=== PATIENT | female | born 1930 | race Caucasian/White ===

== ENCOUNTER 2019-03-21 19:20 | Inpatient (IN) | payer MEDICARE, OTHER ==
--- NOTE | 2019-03-21 21:02 | ED ---
Lower Extremity - HPI Summary HPI Summary: The patient is an 88 y/o female presenting to [facility] accompanied by family with a chief complaint of pain in the anterior lower left leg worsening since yesterday. She reports that on 03/02/2019, she had a fall which had a negative workup. There were abrasions to the lower extremities which began to heal with at-home interventions of cleaning and applying gauze for coverage. The dressings have been changed by family since onset, but they noticed mild edema in the left foot. Yesterday, she began to experience more pain in the lower left leg, but she did not have difficulty ambulating. Today, her daughter noticed swelling and drainage of the wounds on the leg, as well as increased edema in the foot. After she had a nap and woke up around [id number], the patient was unable to ambulate on the left lower extremity without severe pain. She has not taken any medications for pain relief. The pain is rated 9/10 in severity. She endorses tingling in the distal leg. Currently taking Xarelto. PMHx: CHF, mitral valve repair, tricuspid valve repair, pacemaker/defibrillator , early dementia, bilateral hip replacements. Nonsmoker, no EtOH, no substance use. Medications reviewed. Allergies noted. - History of Current Complaint Chief Complaint: EDExtremityLower Stated Complaint: PAIN IN LEFT LEG PER DAUGHTER Time Seen by Provider: 03/21/19 20:52 Hx Obtained From: Patient, Family/Postal Transportation Clerk Mechanism Of Injury: Fall From A Standing Position Onset of Pain: Days Onset/Duration: Worse Since - yesterday Severity Initially: Mild Severity Currently: Severe Pain Intensity: 9 Pain Scale Used: 0-10 Numeric Timing: Constant Location: Is Discrete @ - lower left leg Associated Signs And Symptoms: Positive: Swelling - wounds on left leg, Other - edema left foot, drainage of wounds on left leg, tingling in lower left leg Aggravating Factor(s): Ambulation Alleviating Factor(s): Nothing Able to Bear Weight: Yes - Allergies/Home Medications Allergies/Adverse Reactions: Allergies Allergy/AdvReac Type Severity Reaction Status Date / Time No Known Allergies Allergy Verified 03/21/19 19:26 Home Medications: Home Medications Amiodarone HCl [Amiodarone HCl-] 100 mg PO DAILY 03/22/19 [History Confirmed ] Aspirin [Aspir-Low] 81 mg PO DAILY 03/22/19 [History Confirmed 03/22/19] Atorvastatin Calcium [Lipitor] 40 mg PO DAILY 03/22/19 [History Confirmed ] Enalapril Maleate 2.5 mg PO DAILY 03/22/19 [History Confirmed 03/22/19] Famotidine 20 mg PO BID 03/22/19 [History Confirmed 03/22/19] Folic Acid TAB* [Folvite TAB*] 1 tab PO DAILY 03/22/19 [History Confirmed ] Metoprolol Succinate [Metoprolol Succinate ER] 25 mg PO DAILY 03/22/19 [History Confirmed 03/22/19] Potassium Chloride 1 tab PO DAILY 03/22/19 [History Confirmed 03/22/19] Pramipexole [Mirapex] 1 mg PO TID 03/22/19 [History Confirmed 03/22/19] Rivaroxaban TAB(*) [Xarelto 15 mg(*)] 15 mg PO DAILY 03/22/19 [History Confirmed 03/22/19] Spironolactone 25 mg PO DAILY 03/22/19 [History Confirmed 03/22/19] Torsemide 2 tab PO DAILY 03/22/19 [History Confirmed 03/22/19] Ubiquinol [Active-Q] 300 mg PO DAILY 03/22/19 [History Confirmed 03/22/19] PMH/Surg Hx/FS Hx/Imm Hx Endocrine/Hematology History: Denies: Hx Diabetes Cardiovascular History: Reports: Hx Congestive Heart Failure, Hx Pacemaker/ICD, Other Cardiovascular Problems/Disorders - mitral valve replacement, tricuspid valve repair Neurological History: Reports: Hx Dementia - Surgical History Surgical History: Yes Surgery Procedure, Year, and Place: pacemaker, mitral and tricuspid valve repairs, bilateral hip replacements Infectious Disease History: No Infectious Disease History: Denies: Traveled Outside the [place] in Last 30 Days - Social History Alcohol Use: None Hx Substance Use: No Substance Use Type: Reports: None Hx Tobacco Use: No Smoking Status (MU): Never Smoked Tobacco - Additional Comments History Additional Comments: CHF, mitral valve repair, tricuspid valve repair, pacemaker/defibrillator, early dementia Review of Systems - ROS Summary Review of Systems Summary: Home Medications Medication Instructions Recorded Confirmed Type Amiodarone HCl [Amiodarone HCl-] 100 mg PO DAILY 03/22/19 03/22/19 History Aspirin [Aspir-Low] 81 mg PO DAILY 03/22/19 03/22/19 History Atorvastatin Calcium [Lipitor] 40 mg PO DAILY 03/22/19 03/22/19 History Enalapril Maleate 2.5 mg PO 03/22/19 History Famotidine 03/22/19 History Folic Acid TAB* [Folvite TAB*] 1 tab PO DAILY 03/22/19 03/22/19 History Metoprolol Succinate [Metoprolol 25 mg PO DAILY 03/22/19 03/22/19 History Succinate ER] Potassium Chloride 1 tab PO DAILY 03/22/19 03/22/19 History Pramipexole [Mirapex] 1 mg PO TID 03/22/19 03/22/19 History Rivaroxaban TAB(*) [Xarelto 15 15 mg PO DAILY 03/22/19 03/22/19 History mg(*)] Spironolactone 25 mg PO DAILY 03/22/19 03/22/19 History Torsemide 2 tab PO DAILY 03/22/19 03/22/19 History Ubiquinol [Active-Q] 300 mg PO DAILY 03/22/19 03/22/19 History Positive: Edema - left foot, Other - pain and swelling of left lower extremity, difficulty ambulating on left leg secondary to pain Positive: Other - drainage of the abrasions to left lower extremity Positive: Paresthesia - lower left leg All Other Systems Reviewed And Are Negative: Yes Physical Exam - Summary Physical Exam Summary: General: Well-developed, Well-nourished elderly female. Appears to be in mild discomfort. HEENT: Normocephalic, Atraumatic. Eyes: Conjuctiva normal, PERRL. Oropharynx: Clear, mucous membranes moist, (-) exudates. Neck: Soft, FROM, (-) lymphadenopathy, (-) thyromegaly, (-) JVD. Cardiovascular: Normal sinus rhythm, (-) murmur. Lungs: Clear to auscultation bilaterally (-) wheezes, (-) rales, (-) rhonchi. Abdomen: Soft, non-tender, non-distended, (-) organomegaly, normal bowel sounds. Back: (-) CVA tenderness Extremities: Left lower extremity has 1+ pitting edema. Erythema from the mid- lower extremity down including the foot with swelling. Good pulses, good capillary refill. Skin: Warm, dry, (-) rash. Three open ulcers with weeping on the left lower extremity, greatest is 1.2cm in diameter and 3mm deep. Neuro: Alert and oriented x3, move all extremities equally. No ataxia. No gait disturbance. No sensory deficit. No amnesia. Good strength and sensation in the distal lower left leg. Psychiatric: Mood normal, affect normal. Triage Information Reviewed: Yes Vital Signs On Initial Exam: Initial Vitals Temp Pulse Resp BP Pulse Ox 100.6 F 72 18 139/54 100 03/21/19 19:23 03/21/19 19:23 03/21/19 19:23 03/21/19 19:23 03/21/19 19:23 Vital Signs Reviewed: Yes Procedures - Sedation Patient Received Moderate/Deep Sedation with Procedure: No Diagnostics - Vital Signs Vital Signs Temp Pulse Resp BP Pulse Ox 03/21/19 19:23 100.6 F 72 18 139/54 100 - Laboratory Result Diagrams: 03/21/19 21:04 03/21/19 21:04 Lab Statement: Any lab studies that have been ordered have been reviewed, and results considered in the medical decision making process. - Radiology CXR Radiology Interpretation Completed By: ED Physician Summary of Radiographic Findings: No infiltrate. No pleural effusion. ED physician has reviewed and interpreted this report. Pending official read. Re-Evaluation - Re-Evaluation First Eval Re-Evaluation Time: 23:30 Comment: I discussed the plan for admission with the patient and her family. They agree with plan. Lower Extremity Course/Dx - Course Course Of Treatment: 88-year-old female from [place] brought in by her family. Patient has known mild dementia. Her earlier this month. Patient has been staying with her daughter for the last 2 weeks here in [place]. She had a fall a couple weeks ago. Seemed to be healing well until her leg became more edematous. The ulcers then worsened. Weeping. Her Lasix was tweaked and there seems to be a little bit better. Today patient started complaining of severe pain in her leg and foot. The area is erythematous and warm. Swollen. Patient is febrile upon arrival. Elevated white count. Blood pressure decreased consistent with sepsis. IV antibiotics and fluids given despite patient's elevated BNP Lasix ordered. Patient referred to hospitalist for admission. Patient administered fluids, Zosyn for infection, Tylenol for pain, and Lasix for edema. - Diagnoses Provider Diagnoses: Cellulitis, Sepsis - Physician Notifications Discussed Care Of Patient With: Tommie Holguin - hospitalist Time Discussed With Above Provider: 23:20 Instructed by Provider To: Other - I discussed the patients case with Dr. Holguin , who accepts the patient for admission. Discharge ED - Sign-Out/Discharge Documenting (check all that apply): Patient Departure - Patient accepted for admission by Dr. Holguin. - Discharge Plan Condition: Stable Disposition: ADMITTED TO [facility] - Billing Disposition and Condition Condition: STABLE Disposition: Admitted to [facility] - Attestation Statements Document Initiated by Itz: Yes Documenting Scribe: Morelia Abdi Provider For Whom Itz is Documenting (Include Credential): Dr. Padmini Andrews MD Scribe Attestation: Morelia Richardson, scribed for Dr. Padmini Andrews MD on 03/22/19 at 0213. Scribe Documentation Reviewed: Yes Provider Attestation: The documentation as recorded by the Morelia winkler accurately reflects the service I personally performed and the decisions made by me, Dr. Padmini Andrews MD Status of Scribe Document: Viewed
[2019-03-21 21:12] LABS: ABS Lymphocytes 0.3 10^3/ul (1.0-4.8); Hematocrit 40 % (35-47); Hemoglobin 13.2 g/dL (12.0-16.0); Lymphocyte % 1.4 %; Mean Corpuscular HGB Conc 33 g/dL (31-36); Mean Corpuscular Hemoglobin 34 pg (27-31); Mean Corpuscular Volume 102 fL (80-97); Mean Platelet Volume 7.4 fL (7.4-10.4); Platelet Count 164 10^3/uL (150-450); Red Blood Count 3.93 10^6 /uL (3.70-4.87); Red Cell Distribution Width 16 % (10-15); White Blood Count 18.3 10^3/uL (3.5-10.8)
[2019-03-21 21:24] LABS: Activated Partial Thrombo Time 36.8 seconds (26.0-38.0); INR 2.37 (0.82-1.09)
[2019-03-21 21:27] LABS: Albumin 3.9 g/dL (3.2-5.2); Albumin/Globulin Ratio 1.6 (1-3); BUN/Creatinine Ratio 33.7 (8-20); C Reactive Protein 43.27 mg/L (<8.01); Calcium 8.8 mg/dL (8.6-10.3); EGFR African American 28.6 (>60); EGFR Non-African American 23.6 (>60); Globulin 2.4 g/dL (2-4); Total Bilirubin 1.8 mg/dL (0.2-1.0); Total Protein 6.3 g/dL (6.4-8.9)
[2019-03-21 21:29] LABS: Potassium 5.8 mmol/L (3.5-5.0)
[2019-03-21] MEDS ORDERED: Acetaminophen TAB* 325 MG PO ONE (21:55)
[2019-03-21] MEDS ORDERED: Piperacillin/Tazobac ADVAN(*) 3.375 GM in NS 0.9% 100 ML* 100 ML IVPB ONE (21:59)
[2019-03-21] MEDS ORDERED: Furosemide IV* 10 MG/ML VIAL (40 MG) IV ONE (22:47)
[2019-03-21] MEDS: NS 0.9% 1000 ML** 1,000 ML IV ONE ×3 (23:01→23:52)
[2019-03-21] MEDS ORDERED: NS 0.9% 1000 ML** 1,000 ML IV ONE (23:49)
[2019-03-22 01:31] LABS: Urine Appearance Cloudy; Urine Bilirubin Negative (Negative); Urine Blood Negative (Negative); Urine Color Yellow; Urine Glucose Negative (Negative); Urine Ketones Negative (Negative); Urine Nitrite Negative (Negative); Urine Protein Negative (Negative); Urine Specific Gravity 1.009 (1.010-1.030); Urine Urobilinogen Negative (Negative)
[2019-03-22 01:35] LABS: Urine Bacteria Absent (Absent); Urine Red Blood Cell Trace(0-2/hpf) (Absent); Urine Squamous Epithelial Cell Present (Absent); Urine White Blood Cell 3+(>20/hpf) (Absent)
[2019-03-22] MEDS ORDERED: Morphine INJ* 2 MG/ML 1 ML SYRINGE (TWO MG - NEW SYRINGE VERSION) IV PRN (01:52)
[2019-03-22] MEDS ORDERED: Vancomycin(*) 1,000 MG in NS 0.9% 250 ML* 250 ML IVPB SCH (02:00)
[2019-03-22] MEDS: Pramipexole TAB* 0.5 MG PO SCH ×4 (03:08→20:56)
[2019-03-22] MEDS: Clindamycin 600 MG/D5W BAG(*) 600 MG/50 ML BAG IV SCH ×2 (03:08→10:19)
[2019-03-22] MEDS: Patiromer POWDER* 8.4 GM PAK PO SCH (03:08)
[2019-03-22] MEDS ORDERED: Norepinephrine 16MCG/ML IVPRE* 4,000 MCG/250 ML BAG IV ONE (03:47)
[2019-03-22] MEDS ORDERED: NS 0.9% 500 ML* 500 ML IV ONE (04:25)
[2019-03-22] MEDS ORDERED: ceFAZolin 2 GM PREMIX in ORs 2 GM/50 ML BAG IVPB SCH (05:00)
[2019-03-22] MEDS ORDERED: Norepinephrine 16MCG/ML IVPRE* 4,000 MCG/250 ML BAG IV SCH (05:00)
[2019-03-22 05:25] LABS: Hematocrit 40 % (35-47); Hemoglobin 13.2 g/dL (12.0-16.0); Mean Corpuscular HGB Conc 33 g/dL (31-36); Mean Corpuscular Hemoglobin 34 pg (27-31); Mean Corpuscular Volume 102 fL (80-97); Mean Platelet Volume 7.4 fL (7.4-10.4); Platelet Count 140 10^3/uL (150-450); Red Blood Count 3.95 10^6 /uL (3.70-4.87); Red Cell Distribution Width 17 % (10-15)
[2019-03-22 05:41] LABS: ABS Basophils 0.3 10^3/ul (0-0.2); ABS Lymphocytes 0.3 10^3/ul (1.0-4.8); ABS Monocytes 1.1 10^3/ul (0-0.8); ABS Neutrophils 31.2 10^3/ul (1.5-7.7); Lymphocyte % 1.1 %; Nucleated Red Blood Cells % 0.1
[2019-03-22 05:41] LABS: BUN/Creatinine Ratio 33.5 (8-20); Calcium 7.9 mg/dL (8.6-10.3); EGFR African American 29.9 (>60); EGFR Non-African American 24.7 (>60); Potassium 4.8 mmol/L (3.5-5.0)
[2019-03-22 07:39] LABS: Urine Creatinine Concentration 25.5 mg/dL
[2019-03-22] MEDS: Amiodarone TAB* 200 MG PO SCH (08:36)
[2019-03-22] MEDS: Atorvastatin* 40 MG TAB PO SCH (08:36)
[2019-03-22] MEDS: Folic Acid TAB* 1 MG PO SCH (08:36)
[2019-03-22] MEDS: Aspirin EC TAB* 81 MG TAB.EC PO SCH (08:37)
[2019-03-22] MEDS: Rivaroxaban TAB(*) 15 MG PO SCH (08:37)
--- NOTE | 2019-03-22 10:50 | HP ---
HISTORY AND PHYSICAL: DATE OF ADMISSION: 03/22/19 ADMITTING PROVIDER: Tommie Holguin MD PRIMARY CARE PROVIDER: Dr. Rodney. OUTPATIENT STREET LIGHT SERVICER SUPERVISOR: Dr. Parson. CHIEF COMPLAINT: Left lower extremity pain, fevers, recent swelling, and oozing wound. HISTORY OF PRESENT ILLNESS: Sarah Atkins is an 88-year-old female with a past medical history of severe systolic CHF, dementia, restless legs syndrome, mitral valve prolapse, status post porcine valve, paroxysmal atrial fibrillation. She lives in [place], where she on 03/02/19, fell and scrapped her leg against what was thought to be a plastic wastebasket. She was evaluated in urgent care in [place] and had an x-ray. She then on 03/06/19, had a CAT scan of her head and x-ray of her back for some pain there. She eventually would develop some pain swelling on 03/17/19, to the point that her legs were seeping/oozing and her torsemide dose was increased and the daughter decided to stop the amiodarone, which some providers had done in the past when she had similar swelling. She had been having some breathing difficulties ever since around [place] time and her weight had increased and these changes were effective in reducing her swelling and weight. On the day prior to her admission , she was relatively okay, but then had progressive pain in the left lower extremity and would develop a fever at home. She presented to [facility] Emergency Room. She was found to have a fever of 100.6 and leukocytosis to 18.3, a BNP greater than 1300, CRP 43, a creatinine of 1.99, and a hyperkalemia to 5.8. She was started on Zosyn and referred to hospitalist service for admission for sepsis secondary to suspected left lower extremity cellulitis. She got 1 L of normal saline with emergency room and then after the labs, she got 40 mg IV Lasix from the emergency room. Her blood pressures dropped, initially they were 139/54, but dropped to mid 70s/as low as 30s, sometimes even 60s/40s. She is not a best historian, but additional history is provided by her daughter, Vivi, who is at bedside and who she has been staying with for the last 2 weeks in [place]. They report that she got an echo in mid January, which reportedly was unchanged, but that she has long has a history of what they estimate to be an ejection fraction of around 10%, though they are not completely great historians either. They deny any history of known kidney disease. PAST SURGICAL HISTORY: It is unclear if she has had surgeries, but she has had issues with right rotator cuff, back and hand osteoarthritis. MEDICATIONS: Include: 1. Famotidine 20 mg p.o. b.i.d. 2. Enalapril 2.5 mg daily. 3. Xarelto 15 mg daily. 4. Pramipexole 1 mg p.o. t.i.d. 5. Metoprolol succinate 25 mg daily. 6. Spironolactone 25 mg p.o. daily. 7. Ubiquinol 300 mg p.o. daily. 8. Atorvastatin 40 mg p.o. daily. 9. Aspirin 81 mg p.o. daily. 10. Amiodarone 100 mg p.o. daily. 11. Potassium chloride 1 tab p.o. daily. 12. Folic acid 1 tab p.o. daily. 13. Torsemide 20 mg alternating 1 tab with 2 tabs each day. She took two tabs this morning. ALLERGIES: No known drug allergies. FAMILY HISTORY: Somewhat limited, but her mother was thought to have of dementia at age 86 and her father of heart disease and phlebitis at age 88. SOCIAL HISTORY: The patient is a never smoker. No significant alcohol or drug use. 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 Notably, her just a few weeks ago. REVIEW OF SYSTEMS: Complete 14-point review of systems negative except as per HPI. She complains of intermittently severe pain in the left foot and lower extremity. PHYSICAL EXAMINATION GENERAL APPEARANCE: In no acute distress, but ill appearing. VITAL SIGNS: Temperature initially 100.6, currently 98.6, heart rate in the mid 70s, respiratory rate initially 18, it got as high as 29, blood pressure initially 139/54, but with some MAPs in the mid 40s, currently on pressors. HEENT: Normocephalic and atraumatic. Pupils are equal, round, and reactive to light. Extraocular movements intact. No scleral icterus. LUNGS: No wheezing or rhonchi. Slight rales at the bases. ABDOMEN: Soft, nontender, nondistended. EXTREMITIES: Warm. There is difficulty palpating the pulses in the dorsalis pedis bilaterally. Left lower extremity has areas of necrotic eschar, approximately 1.5 cm in diameter at the biggest, some areas of oozing, clear fluid. NEUROLOGIC: Moving all extremities. Cranial nerves intact. DIAGNOSTIC STUDIES/LAB DATA: White blood 18.3, hemoglobin 13.2, hematocrit 40, platelets 164. Absolute neutrophil 17.0, INR 2.37. Sodium 133, potassium 5.8, chloride 102, carbon dioxide 20, anion gap 11, BUN 67, creatinine 1.99, glucose 115. Lactic acid 2.3, improved to 1.4. Total bili 1.8, AST is 20, ALT 18, alk phos 132. CRP 43.3. BNP greater than 1300. Total protein 6.3, albumin 3.9. Urinalysis, 3+ leukocyte esterase, 3+ wbc's, squamous epithelial cells present. Imaging: Chest x-ray formal read pending. She has cardiomegaly and a pacemaker defibrillator, no clear evidence of infiltration or pneumonia. ASSESSMENT AND PLAN: Sarah Atkins is an 88-year-old female with past medical history of dementia, severe systolic congestive heart failure with reported ejection fraction of approximately 10%, restless leg syndrome, paroxysmal atrial fibrillation, on Xarelto, who had a scrape on her left lower extremity almost 3 weeks ago, presenting with fever, sepsis, hypotension, lactic acidosis , currently requiring pressors to maintain blood pressures. She is a DNR/DNI and had multiple discussions with the family including her daughter Vivi, whether or not they would want a central line. They ultimately decided that they would proceed with this and this will be need to be placed shortly as she only has peripheral IV access currently. Suspected source of the sepsis is her left lower extremity cellulitis versus less likely urinary tract infection. She is status post 1 dose of Zosyn in the emergency room. I do have some suspicion for possible streptococcal infection and I am going to change her meds to clindamycin 600 mg IV q.8 hours and cefazolin 2 g q.12 hours (renal dosing). She is status post 1500 mL of normal saline after the Lasix. She got 40 mg IV once from Dr. Andrews at 2055. Her lactic acidosis has resolved. Of note, she does have blood pressure logs from home and her blood pressures systolic usually runs in the 90s while she is also on multiple antihypertensive and CHF medications such as spironolactone 25, metoprolol, enalapril, these will all be held in the setting of her pressor requirements, also holding her diuretics. I increased her torsemide 20 mg twice a day versus once a day alternating recently. Continue her atorvastatin, aspirin 81, restart her amio 100 mg, and Xarelto in the morning. I gave her some patiromer for her hyperkalemia with suspected acute kidney injury adding on urine creatinine and urine BUN do bladder scans as needed. Suspected if urine output is low, to rule out obstruction. Strict Is and Os, daily weights. She is a DNR/DNI, but has never filled out a MOLST form that will need to be done most likely with the daughters. We will follow up the wound culture, notably it was methicillin- resistant Staphylococcus aureus negative and Staph aureus negative , otherwise could consider returning or adding vancomycin as clinically deteriorates. [id number] #: [id number]
[2019-03-22] MEDS: Norepinephrine 16MCG/ML IVPRE* 4,000 MCG/250 ML BAG IV SCH ×2 (11:11→17:25)
[2019-03-22] MEDS ORDERED: Piperacillin/Tazobac ADVAN(*) 3.375 GM in NS 0.9% 100 ML* 100 ML IVPB ONE (11:30)
[2019-03-22] MEDS ORDERED: Zosyn per Pharmacy* NOTE FOLLOW UP SCH (12:00)
[2019-03-22] MEDS: ZOSYN 3.375 GM Q12H per EXTENDED INFUSION IVPB SCH ×2 (15:32)
--- NOTE | 2019-03-22 16:50 | PN ---
Date of Service: 03/22/19 Critical Care Services: Patient admitted with septic shock likely 2/2 LLE cellulitis. C/o LLE pain. Denies chest pain, shortness of breath, abdominal pain. Tolerating regular diet. Afebrile since admission. Vital Signs: Temp Pulse Resp BP SpO2 FiO2 99.2 F 81 20 94/43 99 03/22/19 16:00 03/22/19 16:00 03/22/19 16:00 03/22/19 16:00 03/22/19 16:00 Physical Exam: Gen: No acute distress. HEENT: Head normocephalic and atraumatic. Pupils are equal. No scleral icterus. Moist mucous membranes. Trachea midline. Lungs: Clear to auscultation. Cardiac: RRR Abdomen: Soft, nondistended, nontender. Extremities: Superficial abrasions with eschar to distal anterior LLE. Erythematous, minimal edema, no drainage, no fluctuance. Feet are warm. Moves all extremities symmetrically. Neuro: Alert and answers questions appropriately. Fluid Balance (Past 24 Hours): I= O= Net Intake & Output 03/20/19 03/21/19 03/22/19 03/23/19 06:59 06:59 06:59 06:59 Intake Total 2888 1009 Output Total 450 495 Balance 2438 514 Weight 125 lb 10.616 oz Intake: IV Fluids 2706 47 NS 506 47 IVPB 119 176 ABX 119 176 Medicated IV 63 306 Levophed 63 306 Oral 480 Output: Urine 450 495 Other: Estimated Void Medium # Voids 1 Labs: Laboratory Results - last 24 hr 03/21/19 03/21/19 03/21/19 21:04 21:04 21:04 WBC 18.3 H RBC 3.93 Hgb 13.2 Hct 40 MCV 102 H MCH 34 H MCHC 33 RDW 16 H Plt Count 164 MPV 7.4 Neut % (Auto) 92.7 Lymph % (Auto) 1.4 Archuleta % (Auto) 5.7 Eos % (Auto) 0.0 Baso % (Auto) 0.2 Absolute Neuts (auto) 17.0 H Absolute Lymphs (auto) 0.3 L Absolute Monos (auto) 1.0 H Absolute Eos (auto) 0.0 Absolute Basos (auto) 0.0 Absolute Nucleated RBC 0.0 Nucleated RBC % 0.0 INR (Anticoag Therapy) 2.37 H APTT 36.8 Sodium 133 L Potassium 5.8 H Chloride 102 Carbon Dioxide 20 L Anion Gap 11 BUN 67 H Creatinine 1.99 H Est GFR ( Amer) 28.6 Est GFR (Non-Af Amer) 23.6 BUN/Creatinine Ratio 33.7 H Glucose 115 H Lactic Acid Calcium 8.8 Total Bilirubin 1.80 H AST 20 ALT 18 Alkaline Phosphatase 132 H C-Reactive Protein 43.27 H B-Natriuretic Peptide Total Protein 6.3 L Albumin 3.9 Globulin 2.4 Albumin/Globulin Ratio 1.6 Urine Color Urine Appearance Urine pH Ur Specific [place] Urine Protein Urine Ketones Urine Blood Urine Nitrate Urine Bilirubin Urine Urobilinogen Ur Leukocyte Esterase Urine WBC (Auto) Urine RBC (Auto) Ur Squamous Epith Cells Urine Bacteria Ur Creatinine Concen Ur Urea Nitrogen Conc Urine Glucose Urine Ascorbic Acid 03/21/19 03/21/19 03/21/19 21:04 21:04 23:34 WBC RBC Hgb Hct MCV MCH MCHC RDW Plt Count MPV Neut % (Auto) Lymph % (Auto) Archuleta % (Auto) Eos % (Auto) Baso % (Auto) Absolute Neuts (auto) Absolute Lymphs (auto) Absolute Monos (auto) Absolute Eos (auto) Absolute Basos (auto) Absolute Nucleated RBC Nucleated RBC % INR (Anticoag Therapy) APTT Sodium Potassium Chloride Carbon Dioxide Anion Gap BUN Creatinine Est GFR ( Amer) Est GFR (Non-Af Amer) BUN/Creatinine Ratio Glucose Lactic Acid 2.3 H* 1.4 Calcium Total Bilirubin AST ALT Alkaline Phosphatase C-Reactive Protein B-Natriuretic Peptide > 1300 H Total Protein Albumin Globulin Albumin/Globulin Ratio Urine Color Urine Appearance Urine pH Ur Specific [place] Urine Protein Urine Ketones Urine Blood Urine Nitrate Urine Bilirubin Urine Urobilinogen Ur Leukocyte Esterase Urine WBC (Auto) Urine RBC (Auto) Ur Squamous Epith Cells Urine Bacteria Ur Creatinine Concen Ur Urea Nitrogen Conc Urine Glucose Urine Ascorbic Acid 03/22/19 03/22/19 03/22/19 01:16 05:14 05:15 WBC 33.0 H RBC 3.95 Hgb 13.2 Hct 40 MCV 102 H MCH 34 H MCHC 33 RDW 17 H Plt Count 140 L MPV 7.4 Neut % (Auto) 94.5 Lymph % (Auto) 1.1 Archuleta % (Auto) 3.5 Eos % (Auto) 0.0 Baso % (Auto) 0.9 Absolute Neuts (auto) 31.2 H Absolute Lymphs (auto) 0.3 L Absolute Monos (auto) 1.1 H Absolute Eos (auto) 0.0 Absolute Basos (auto) 0.3 H Absolute Nucleated RBC 0.0 Nucleated RBC % 0.1 INR (Anticoag Therapy) APTT Sodium 134 L Potassium 4.8 Chloride 106 Carbon Dioxide 18 L Anion Gap 10 BUN 64 H Creatinine 1.91 H Est GFR ( Amer) 29.9 Est GFR (Non-Af Amer) 24.7 BUN/Creatinine Ratio 33.5 H Glucose 114 H Lactic Acid Calcium 7.9 L Total Bilirubin AST ALT Alkaline Phosphatase C-Reactive Protein B-Natriuretic Peptide Total Protein Albumin Globulin Albumin/Globulin Ratio Urine Color Yellow Urine Appearance Cloudy Urine pH 5.0 Ur Specific Bald[place] 1.009 L Urine Protein Negative Urine Ketones Negative Urine Blood Negative Urine Nitrate Negative Urine Bilirubin Negative Urine Urobilinogen Negative Ur Leukocyte Esterase 3+ A Urine WBC (Auto) 3+(>20/hpf) A Urine RBC (Auto) Trace(0-2/hpf) Ur Squamous Epith Cells Present A Urine Bacteria Absent Ur Creatinine Concen Ur Urea Nitrogen Conc Urine Glucose Negative Urine Ascorbic Acid * A 03/22/19 07:04 WBC RBC Hgb Hct MCV MCH MCHC RDW Plt Count MPV Neut % (Auto) Lymph % (Auto) Archuleta % (Auto) Eos % (Auto) Baso % (Auto) Absolute Neuts (auto) Absolute Lymphs (auto) Absolute Monos (auto) Absolute Eos (auto) Absolute Basos (auto) Absolute Nucleated RBC Nucleated RBC % INR (Anticoag Therapy) APTT Sodium Potassium Chloride Carbon Dioxide Anion Gap BUN Creatinine Est GFR ( Amer) Est GFR (Non-Af Amer) BUN/Creatinine Ratio Glucose Lactic Acid Calcium Total Bilirubin AST ALT Alkaline Phosphatase C-Reactive Protein B-Natriuretic Peptide Total Protein Albumin Globulin Albumin/Globulin Ratio Urine Color Urine Appearance Urine pH Ur Specific [place] Urine Protein Urine Ketones Urine Blood Urine Nitrate Urine Bilirubin Urine Urobilinogen Ur Leukocyte Esterase Urine WBC (Auto) Urine RBC (Auto) Ur Squamous Epith Cells Urine Bacteria Ur Creatinine Concen 25.50 Ur Urea Nitrogen Conc 375 Urine Glucose Urine Ascorbic Acid Nutrition: Regular diet Impression: 88F with septic shock, likely 2/2 LLE cellulitis, possibe UTI. Plan: Neuro: H/o dementia. Tylenol prn for pain and fever. Morphine prn for pain. Continue home folic acid. CV: Severe systolic CHF. Paroxysmal a fib. Septic shock. Levophed for MAP >65. PICC line today for central access. Holding home spironolactone, metoprolol, enalapril, torsemide due to hypotension. Continue home amiodarone and Xarelto for paroxysmal a fib. Continue home ASA. Continue home atorvastatin. Respiratory: No acute issues. On room air. GI: Heart Healthy diet. Continue home famotidine. : JIMMY with Cr 1.91. FEUrea suggests intrinsic renal disease. Baseline Cr unknown. Holding torsemide due to hypotension. Urine output is adequate. Monitor urine output and bladder scans. Will place Turner catheter if urine output decreases. Continue to trend Cr. Minimize IV fluids since BNP >1300. Hyperkalemia- Patiromer powder. K 4.8 this morning. Heme: Xarelto for paroxysmal a fib. DVT ppx: anticoagulated. ID: Septic shock 2/2 LLE cellulitis, less likely UTI. Leukocytosis worse this morning, WBC 33. Afebrile. Lactic acid normal. Continue to trend CBC. F/u blood cx and urine cx. UA positive for UTI but looks like contaminated sample. Nasal swab is MRSA negative. Wound cx is Staph aureus negative, GPC and Gram neg coccobacilli. Initially on cefazolin and clindamycin. Switch to Zosyn for broader coverage. Endo: No acute issues. Glucose check daily with BMP. Code status: DNR/DNI. MOLST form filled out with daughter and son-in-law. Critical Care Time: 50 min
[2019-03-22] MEDS: Lactobacillus Acidophilus* 1 TAB PO SCH (20:56)
[2019-03-22] MEDS: Famotidine SUSP ORALSYR 8 MG/ML PO SCH (20:57)
[2019-03-23] MEDS: Norepinephrine 16MCG/ML IVPRE* 4,000 MCG/250 ML BAG IV SCH ×2 (01:08→11:27)
[2019-03-23] MEDS: Acetaminophen TAB* 325 MG PO PRN ×2 (01:52→21:42)
[2019-03-23] MEDS: ZOSYN 3.375 GM Q12H per EXTENDED INFUSION IVPB SCH ×4 (04:09→15:13)
[2019-03-23] MEDS: Patiromer POWDER* 8.4 GM PAK PO SCH (04:09)
[2019-03-23 04:43] LABS: Hematocrit 35 % (35-47); Hemoglobin 11.8 g/dL (12.0-16.0); Mean Corpuscular HGB Conc 34 g/dL (31-36); Mean Corpuscular Hemoglobin 34 pg (27-31); Mean Corpuscular Volume 101 fL (80-97); Mean Platelet Volume 7.7 fL (7.4-10.4); Platelet Count 144 10^3/uL (150-450); Red Blood Count 3.48 10^6 /uL (3.70-4.87); Red Cell Distribution Width 17 % (10-15); White Blood Count 18.3 10^3/uL (3.5-10.8)
[2019-03-23 04:49] LABS: ABS Eosinophils 0.1 10^3/ul (0-0.6); ABS Lymphocytes 0.6 10^3/ul (1.0-4.8); ABS Monocytes 1.8 10^3/ul (0-0.8); ABS Neutrophils 15.8 10^3/ul (1.5-7.7); Eosinophil % 0.4 %; Lymphocyte % 3.1 %
[2019-03-23 05:00] LABS: BUN/Creatinine Ratio 32.5 (8-20); Calcium 7.9 mg/dL (8.6-10.3); EGFR African American 35.9 (>60); EGFR Non-African American 29.7 (>60); Potassium 4.4 mmol/L (3.5-5.0)
[2019-03-23] MEDS: Rivaroxaban TAB(*) 15 MG PO SCH (08:55)
[2019-03-23] MEDS: Pramipexole TAB* 0.5 MG PO SCH ×3 (08:55→21:42)
[2019-03-23] MEDS: Atorvastatin* 40 MG TAB PO SCH (08:55)
[2019-03-23] MEDS: Amiodarone TAB* 200 MG PO SCH (08:55)
[2019-03-23] MEDS: Famotidine SUSP ORALSYR 8 MG/ML PO SCH ×2 (08:55→21:46)
[2019-03-23] MEDS: Aspirin EC TAB* 81 MG TAB.EC PO SCH (08:55)
[2019-03-23] MEDS: Folic Acid TAB* 1 MG PO SCH (08:55)
[2019-03-23] MEDS: Lactobacillus Acidophilus* 1 TAB PO SCH (08:55)
--- NOTE | 2019-03-23 15:45 | PN ---
Date of Service: 03/23/19 Critical Care Services: Patient c/o LLE pain. Asking to get out of bed. Denies chest pain, SOB, abdominal pain, nausea. Tolerating regular diet. BM yesterday. Continues to require Levophed. Afebrile. Vital Signs: Temp Pulse Resp BP SpO2 FiO2 98.9 F 76 22 91/64 93 03/23/19 07:52 03/23/19 14:31 03/23/19 14:31 03/23/19 14:31 03/23/19 14:31 Physical Exam: Gen: No acute distress, sitting up in bed. HEENT: Normocephalic and atraumatic. Pupils equal. No scleral icterus. Moist mucous membranes. Neck supple and trachea midline. Lungs: Clear to auscultation b/l. No accessory muscle use. Cardiac: RRR Abdomen: Soft, nontender, nondistended. Bowel sounds present. Extremities: Eschar on distal anterior LLE is unchanged. Distal LLE is erythematous, small amount of clear drainage, no fluctuance. 2+ pedal edema b/ l. Feet are warm. Neuro: Alert and oriented x3. Moves all extremities symmetrically. Psych: Affect normal. Fluid Balance (Past 24 Hours): I= O= Net +1L/24h Intake & Output 03/21/19 03/22/19 03/23/19 03/24/19 06:59 06:59 06:59 06:59 Intake Total 2888 2109 781 Output Total 450 995 350 Balance 2438 1114 431 Weight 125 lb 10.616 oz 130 lb 1.164 oz Intake: IV Fluids 2706 47 91 ABX 91 NS 506 47 IVPB 119 176 100 ABX 119 176 100 Medicated IV 63 506 Levophed 63 506 Oral 1380 590 Output: Urine 450 995 150 Turner 200 Other: Estimated Void Medium Medium # Bowel Movements 1 Estimated Stool Amount Medium # Voids 1 1 Labs: Laboratory Results - last 24 hr 03/23/19 03/23/19 04:28 04:28 WBC 18.3 H RBC 3.48 L Hgb 11.8 L Hct 35 MCV 101 H MCH 34 H MCHC 34 RDW 17 H Plt Count 144 L MPV 7.7 Neut % (Auto) 86.6 Lymph % (Auto) 3.1 Grant % (Auto) 9.9 Eos % (Auto) 0.4 Baso % (Auto) 0.0 Absolute Neuts (auto) 15.8 H Absolute Lymphs (auto) 0.6 L Absolute Monos (auto) 1.8 H Absolute Eos (auto) 0.1 Absolute Basos (auto) 0.0 Absolute Nucleated RBC 0.0 Nucleated RBC % 0.0 Sodium 132 L Potassium 4.4 Chloride 106 Carbon Dioxide 19 L Anion Gap 7 BUN 53 H Creatinine 1.63 H Est GFR ( Amer) 35.9 Est GFR (Non-Af Amer) 29.7 BUN/Creatinine Ratio 32.5 H Glucose 156 H Calcium 7.9 L Nutrition: Heart Healthy. Impression: 88F admitted with septic shock due to LLE cellulitis, improving. Severe systolic CHF. Paroxysmal a fib. JIMMY improving. Plan: Neuro: Tylenol prn for pain and fever. Morphine prn for pain. Continue home folic acid. Delirium precautions. Avoid benzodiazepines. CV: Wean Levophed for MAP >65. Holding home spironolactone, metoprolol, enalapril, and torsemide due to hypotension. Plan to restart home medications slowly when off levophed. Continue home ASA, amiodarone, and Xarelto. Continue home atorvastatin. Respiratory: No acute issues. On room air. Titrate FiO2 for sat >90%. GI: Heart healthy diet. Continue home famotidine. : JIMMY improving, Cr 1.63. Continue to trend Cr. Restart torsemide when hypotension resolves. Strict I&Os. K is normal, continue patiromer powder to maintain. Heme: H&H and platelets within normal limits. On xarelto for pAF. ID: Leukocytosis improving and afebrile. Blood and urine cx negative to date, f/u final results. Wound cx with Acinetobacter, E. coli, and normal alexandre. Continue Zosyn, day 2. Endo: No acute issues. Will start insulin protocol for BG >200 MSK: Out of bed to chair as tolerated. Caution with activity due to hypotension. Wounds: Eschar to LLE, keep area clean and dry. Continue antibiotics for cellulitis. GI ppx: not indicated. On home H2 annie DVT ppx: Anticoagulated. Lines: PICC placed 03/22. Code status: DNR/DNI Dispo: ICU due to hemodynamic instability. Status: Critical Critical Care Time: 35 min
--- NOTE | 2019-03-23 20:02 | CONSULT ---
Subjective Date of Service: 03/23/19 Interval History: Ms. Atkins is an 88 yo female with PMH signficant for systolic CHF, dementia, RLS, mitral valve prolapse s/p mv replacement, and P A fib; who presented to the emergency room with complaints of left LE pain, fevers, edema, and an oozing wound. She reports that March 02 she had a fall and scrapped her left leg on a plastic wastebasket. She presented to the hospital and was found to have areas of necrotic tissue to the left leg. Patient seen and examined at bedside. Verbal consent for wound consult and photograph obtained. Family History: Unchanged from Admission Social History: Unchanged from Admission Past Medical History: Unchanged from Admission Review of Systems - Measurements Intake and Output: Intake and Output Last 24 Hours 03/21/19 03/22/19 03/23/19 03/24/19 06:59 06:59 06:59 06:59 Intake Total 2888 2109 1295 Output Total 450 995 500 Balance 2438 1114 795 Weight 125 lb 10.616 oz 130 lb 1.164 oz Intake: IV Fluids 2706 47 91 ABX 91 NS 506 47 IVPB 119 176 121 ABX 119 176 121 Medicated IV 63 506 253 Levophed 63 506 253 Oral 1380 830 Output: Urine 450 995 300 Turner 200 Other: Estimated Void Medium Medium # Bowel Movements 1 Estimated Stool Amount Medium # Voids 1 1 - Review of Systems Constitutional Symptoms: Negative: Fever, Other - Chills Dermatology: Positive: Other - Wounds to the left leg with drainage Objective Active Medications: Acetaminophen (Tylenol Tab*) 650 mg PO Q6H PRN Reason: PAIN - MILD Albuterol/Ipratropium (Duoneb (Albuterol 2.5 Mg/Ipratropium 0.5 Mg)) 1 neb INH RT.[id number] AWAKE PRN Reason: SOB/WHEEZING Amiodarone HCl (Cordarone Tab*) 100 mg PO DAILY [facility] Aspirin (Aspirin Ec Tab*) 81 mg PO DAILY [facility] Atorvastatin Calcium (Lipitor*) 40 mg PO DAILY [facility] Famotidine (Pepcid Susp 8mg/Ml) 10 mg PO BID [facility] Folic Acid (Folvite Tab*) 1 mg PO DAILY [facility] Heparin Sodium (Porcine) (Heparin Flush Picc/Ml/Cvc(*)) 1 - 3 ml FLUSH 0600, 1800 [facility]; Protocol Norepinephrine Bitartrate (Levophed 16 Mcg/Ml Premix*) 4,000 mcg in 250 mls @ 18.75 mls/hr IV .INITIAL RATE [facility]; Protocol Piperacillin Sod/Tazobactam (Sod 3.375 gm/ Sodium Chloride) 100 mls @ 25 mls/ hr IVPB Q12H [facility] Lactobacillus Rhamnosus (Lactobacillus Acidophilus*) 1 tab PO DAILY [facility] Morphine Sulfate (Morphine Inj (Syringe))*) 1 mg IV Q2H PRN Reason: PAIN - SEVERE Patiromer (Veltassa Powder*) 8.4 gm PO DAILY@0300 [facility] Pharmacy Consult (Zosyn Per Pharmacy*) 1 note FOLLOW UP .ZOSYN PER PHARMACY [facility] Pramipexole Dihydrochloride (Mirapex Tab*) 1 mg PO TID [facility] Rivaroxaban (Xarelto(*)) 15 mg PO DAILY [facility] Vital Signs 03/23/19 03/23/19 03/23/19 15:45 16:00 16:15 Temperature 97.9 F Pulse Rate 76 76 76 Respiratory 18 18 27 Rate Blood Pressure 97/49 97/55 85/52 (mmHg) O2 Sat by Pulse 100 100 100 Oximetry Oxygen Devices in Use Now: None Appearance: NAD, laying in bed Ears/Nose/Mouth/Throat: Mucous Membranes Moist Respiratory: Symmetrical Chest Expansion and Respiratory Effort Cardiovascular: - - 1-2+ bilateral LE edema, Left > Right Extremities: - - Weak DP pulse on the left Skin: - - See skin note below Neurological: Alert and Oriented x 3 Nutrition: Taking PO's Result Diagrams: 03/25/19 06:25 03/28/19 04:42 Additional Lab and Data: Above labs were pulled into the note, when the note was edited prior to signing. See below for labs from the day of consultation. Laboratory Tests 03/21/19 03/23/19 03/23/19 21:04 04:28 04:28 WBC 18.3 H Hgb 11.8 L Hct 35 Plt Count 144 L Sodium 132 L Potassium 4.4 Chloride 106 Carbon Dioxide 19 L BUN 53 H Creatinine 1.63 H Glucose 156 H C-Reactive Protein 43.27 H Total Protein 6.3 L Albumin 3.9 Diagnostic Imagin. Exam Date: 03/23/19151 - VL ANK/BRACHIAL INDICES Right: Value (SBP) Index Brachial: 95 Posterior tibialis: Not acquired Dorsalis pedis: Noncompressible Left: Value (SBP) Index Brachial: 95 Posterior tibialis: Not acquired Dorsalis pedis: Not acquired Doppler waveforms (acquired at rest): In the interrogated lower extremity arteries, Doppler waveforms are monophasic measured at the bilateral dorsalis pedis arteries. Volume pulse recordings (acquired at rest): Volume pulse recordings, measured at the bilateral ankles, are symmetric. IMPRESSION: 1. Noncompressibility of the right dorsalis pedis artery indicates calcified atherosclerosis preventing compression of the artery and therefore preventing acquisition of unreliable SUSHILA. 2. Arterial waveforms are monophasic at the bilateral dorsalis pedis artery indicating some degree of proximal arterial insufficiency. 3. Due to the pain the patient experienced, no further ABIs could be attempted at the right posterior tibial artery or the left pedal arteries. If there exists strong clinical suspicion for arterial insufficiency exacerbating the left lower extremity ulcers, clinical evaluation with a vascular specialist may be appropriate. 2. Exam Date: 03/22/19 0155 - CT EXTREMITY LOWER LEFT WO IMPRESSION: Edematous and or inflammatory changes involving the left lower leg. Skin Deviation Note - Skin Deviation Findings Left lower leg - There are multiple areas of black necrotic tissue. There is a cluster of 2 on the medial aspect of the leg, measures 1.2 cm x 1 cm x 0.1 cm. The wound base is 100 % black dry necrotic tissue. There is no drainage. The surrounding skin with chronic skin changes. There is another area to the anterior aspect of the left, measures, 1.3 cm x 1.5 cm x > 0.1 cm. The wound base is 100 % black dry necrotic tissue. There is no drainage. The surrounding skin with chronic skin changes. There is a cluster of wounds on the anterior/ lateral leg, measures 2 cm x 1.5 cm x 0.1 cm. 2 of the areas with 100% dry black necrotic tissue. There is a wound with pink epithelial tissue and a small amount of serous drainage. The surrounding skin is intact and there are chronic skin changed noted. There is a cluster of dark purplish discolorations on the lateral aspect of the leg, measures 3.5 cm x 2.2 cm. The surrounding skin is intact and there is no drainage. Wound Problem/Plan Assessment: Ms. Atkins is an 88 yo female with PMH signficant for systolic CHF, dementia, RLS, mitral valve prolapse s/p mv replacement, and P A fib; who presented to the emergency room with complaints of left LE pain, fevers, edema, and an oozing wound. She presented to the hospital and was found to have areas of necrotic tissue to the left leg. 1. Acute wounds to left LE, traumatic per Pt. Suspect there may be a component of vascular disease. ABIs with non-compressible vessels. Recommend washing with soap and water, apply calcium alginate to open areas and areas of weeping, followed by rolled gauze, change daily. Once weeping has decreased, change change every other day to every 72 hours. If she continues to have areas of dry eschar can consider using Santyl to debride the areas. Consider referral to the wound clinic outpatient if these are not healing as expected. Consider referral to Vascular or further imaging to assess circulation status. Consider obtaining a prealbumin level to assess nutritional status. 2. Paroxysmal A fib. Is on Eliquis. This will affect wound healing. 3. Nutrition. Recommend meeting nutrition requirements to assist with wound healing (Protein 1.2-1.5 grams.kg per day and Calories 30-35 kcal/kg per day). Heart healthy diet. 4. Code Status. DNR. 5. Disposition. Inpatient, disposition per primary medicine team. TIME SPENT: Time for this wound consultation was 20 minutes and 10 minutes was spent with the patient discussing past medical history; assessing measuring and photographing the wounds. Is Patient a Wound Clinic Patient: No Attending: Laura Cuevas
[2019-03-24] MEDS: ZOSYN 3.375 GM Q12H per EXTENDED INFUSION IVPB SCH ×4 (03:25→17:20)
[2019-03-24 05:13] LABS: ABS Eosinophils 0.2 10^3/ul (0-0.6); ABS Lymphocytes 0.4 10^3/ul (1.0-4.8); ABS Monocytes 0.9 10^3/ul (0-0.8); Eosinophil % 1.9 %; Hematocrit 31 % (35-47); Hemoglobin 10.5 g/dL (12.0-16.0); Lymphocyte % 3.6 %; Mean Corpuscular HGB Conc 34 g/dL (31-36); Mean Corpuscular Hemoglobin 35 pg (27-31); Mean Corpuscular Volume 102 fL (80-97); Mean Platelet Volume 7.9 fL (7.4-10.4); Platelet Count 114 10^3/uL (150-450); Red Blood Count 3.03 10^6 /uL (3.70-4.87); Red Cell Distribution Width 16 % (10-15); White Blood Count 11.6 10^3/uL (3.5-10.8)
[2019-03-24 05:28] LABS: BUN/Creatinine Ratio 39.7 (8-20); Calcium 7.7 mg/dL (8.6-10.3); EGFR African American 40.8 (>60); EGFR Non-African American 33.7 (>60); Potassium 4.2 mmol/L (3.5-5.0)
[2019-03-24] MEDS: Aspirin EC TAB* 81 MG TAB.EC PO SCH (08:42)
[2019-03-24] MEDS: Rivaroxaban TAB(*) 15 MG PO SCH (08:42)
[2019-03-24] MEDS: Pramipexole TAB* 0.5 MG PO SCH ×3 (08:42→19:43)
[2019-03-24] MEDS: Folic Acid TAB* 1 MG PO SCH (08:42)
[2019-03-24] MEDS: Atorvastatin* 40 MG TAB PO SCH (08:43)
[2019-03-24] MEDS: Lactobacillus Acidophilus* 1 TAB PO SCH (08:43)
[2019-03-24] MEDS: Amiodarone TAB* 200 MG PO SCH (08:43)
[2019-03-24] MEDS ORDERED: Patiromer POWDER* 8.4 GM PAK PO SCH (09:00)
[2019-03-24] MEDS: Famotidine TAB* 20 MG PO SCH ×2 (10:04→19:44)
[2019-03-24] MEDS: Torsemide TAB* 20 MG PO SCH (10:04)
[2019-03-24] MEDS: Famotidine SUSP ORALSYR 8 MG/ML PO SCH (10:11)
--- NOTE | 2019-03-24 11:38 | PN ---
Date of Service: 03/24/19 Critical Care Services: Complains of LLE pain which is about the same. Tylenol has controlled the pain. She denies chest pain, abdominal pain, nausea. She becomes short of breath with exertion. She wants to start walking today. Levophed off since yesterday afternoon. Vital Signs: Temp Pulse Resp BP SpO2 FiO2 98.6 F 75 19 105/54 100 03/24/19 08:00 03/24/19 11:00 03/24/19 11:00 03/24/19 11:00 03/24/19 11:00 Physical Exam: Gen: No acute distress. HEENT: Normocephalic and atraumatic. Pupils equal, no scleral icterus. Moist mucous membranes. Neck supple and trachea midline. Lungs: Clear to auscultation b/l. No accessory muscle use. Cardiac: RRR Abdomen: Soft, nontender, nondistended. Extremities: Warm. Erythema distal LLE. L calf is wrapped with kerlix, which is clean and dry. Mild edema in BLE. Skin: Warm and dry. Intact. Neuro: Alert and oriented x3. Moves all extremities equally. Fluid Balance (Past 24 Hours): I= O= Net Intake & Output 03/22/19 03/23/19 03/24/19 03/25/19 06:59 06:59 06:59 06:59 Intake Total 2888 2109 2375 480 Output Total 941 571 7546 315 Balance 2438 1114 1375 165 Weight 125 lb 10.616 oz 130 lb 1.164 oz 132 lb 0.91 oz Intake: IV Fluids 2706 47 91 ABX 91 NS 506 47 IVPB 119 176 121 ABX 119 176 121 Medicated IV 63 506 253 Levophed 63 506 253 Oral 1380 1910 480 Output: Urine 450 995 800 315 Turner 200 Other: Estimated Void Medium Medium Date of Last Bowel 03/23/2019 Movement # Bowel Movements 1 Estimated Stool Amount Small # Voids 1 1 Labs: Laboratory Results - last 24 hr 03/24/19 03/24/19 05:05 05:05 WBC 11.6 H RBC 3.03 L Hgb 10.5 L Hct 31 L MCV 102 H MCH 35 H MCHC 34 RDW 16 H Plt Count 114 L MPV 7.9 Neut % (Auto) 86.3 Lymph % (Auto) 3.6 Parker % (Auto) 7.9 Eos % (Auto) 1.9 Baso % (Auto) 0.3 Absolute Neuts (auto) 10.0 H Absolute Lymphs (auto) 0.4 L Absolute Monos (auto) 0.9 H Absolute Eos (auto) 0.2 Absolute Basos (auto) 0.0 Absolute Nucleated RBC 0.0 Nucleated RBC % 0.0 Sodium 135 Potassium 4.2 Chloride 109 Carbon Dioxide 18 L Anion Gap 8 BUN 58 H Creatinine 1.46 H Est GFR ( Amer) 40.8 Est GFR (Non-Af Amer) 33.7 BUN/Creatinine Ratio 39.7 H Glucose 118 H Calcium 7.7 L Nutrition: Heart healthy. Impression: 88F with sepsis due to LLE cellulitis which is resolving. Severe systolic CHF, stable. Paroxysmal a fib, stable. JIMMY, improving. Plan: Neuro: Tylenol prn for pain and fever. Morphine prn for pain. Continue home folic acid. Delirium precautions. CV: Restart home torsemide at half dose due to recent hypotension. Hold home spironolactone, metoprolol, enalapril but plan to restart over the next 1-2 days. Continue home ASA, amiodarone, Xarelto. Continue home atorvastatin. Respiratory: Titrate FiO2 for O2 sat >90%. GI: Heart healthy diet. Continue home famotidine. Renal: Cr continues to trend down. Continue to trend cr. Start diuresis today. Strict I&Os. Continue patiromer powder. Heme: Xarelto for pAF. Daily CBC. DVT ppx: anticoagulated ID: Leukocytosis improving. Continue Zosyn for cellulitis, day 3. Endo: Insulin protocol if blood glucose >200. MSK: PT, activity ad lotus. Wounds: LLE wound seen by wound team. Calcium alginate for LLE wound Lines: PICC Code status: DNR/DNI. Status: Stable. Dispo: Transfer to floor today.
[2019-03-24] MEDS: Acetaminophen TAB* 325 MG PO PRN (11:48)
[2019-03-25] MEDS: ZOSYN 3.375 GM Q12H per EXTENDED INFUSION IVPB SCH ×2 (04:57)
[2019-03-25 06:42] LABS: ABS Eosinophils 0.2 10^3/ul (0-0.6); ABS Lymphocytes 0.6 10^3/ul (1.0-4.8); ABS Monocytes 0.9 10^3/ul (0-0.8); Hematocrit 31 % (35-47); Lymphocyte % 5.5 %; Mean Corpuscular HGB Conc 35 g/dL (31-36); Mean Corpuscular Hemoglobin 35 pg (27-31); Mean Corpuscular Volume 100 fL (80-97); Mean Platelet Volume 7.5 fL (7.4-10.4); Platelet Count 130 10^3/uL (150-450); Red Cell Distribution Width 16 % (10-15); White Blood Count 10.8 10^3/uL (3.5-10.8)
[2019-03-25 07:00] LABS: BUN/Creatinine Ratio 38.7 (8-20); Calcium 8.1 mg/dL (8.6-10.3); EGFR African American 39.6 (>60); EGFR Non-African American 32.7 (>60); Potassium 4.9 mmol/L (3.5-5.0)
[2019-03-25] MEDS: Famotidine TAB* 20 MG PO SCH ×2 (08:49→21:21)
[2019-03-25] MEDS: Aspirin EC TAB* 81 MG TAB.EC PO SCH (08:49)
[2019-03-25] MEDS: Pramipexole TAB* 0.5 MG PO SCH ×3 (08:49→21:21)
[2019-03-25] MEDS: Folic Acid TAB* 1 MG PO SCH (08:49)
[2019-03-25] MEDS: Atorvastatin* 40 MG TAB PO SCH (08:49)
[2019-03-25] MEDS: Lactobacillus Acidophilus* 1 TAB PO SCH (08:50)
[2019-03-25] MEDS: Amiodarone TAB* 200 MG PO SCH (08:50)
[2019-03-25] MEDS: Rivaroxaban TAB(*) 15 MG PO SCH (08:50)
[2019-03-25] MEDS: Torsemide TAB* 20 MG PO SCH (08:53)
[2019-03-25] MEDS: cefTRIAXone(*) 1 GM in NS 0.9% 50 ML* 50 ML IVPB SCH (11:18)
[2019-03-25] MEDS: Albuterol/Ipratropium NEB.SOL* Albuterol 2.5 MG/Ipratropium 0.5 MG 3 ML INH PRN ×2 (11:44→17:20)
[2019-03-25] MEDS ORDERED: Furosemide IV* 10 MG/ML 2 ML VIAL (20 MG) IV ONE (13:57)
--- NOTE | 2019-03-25 14:07 | PN ---
Subjective Date of Service: 03/25/19 Interval History: pt c/o SOB unchanged x 1 week. SOB better when sitting up Family History: Unchanged from Admission Social History: Unchanged from Admission Past Medical History: Unchanged from Admission Objective Active Medications: Acetaminophen (Tylenol Tab*) 650 mg PO Q6H PRN PRN Reason: PAIN - MILD Last Admin: 03/24/19 11:48 Dose: 650 mg Albuterol/Ipratropium (Duoneb (Albuterol 2.5 Mg/Ipratropium 0.5 Mg)) 1 neb INH [id number] AWAKE PRN PRN Reason: SOB/WHEEZING Last Admin: 03/25/19 11:44 Dose: 1 neb Amiodarone HCl (Cordarone Tab*) 100 mg PO DAILY [facility] Last Admin: 03/25/19 08:50 Dose: 100 mg Aspirin (Aspirin Ec Tab*) 81 mg PO DAILY [facility] Last Admin: 03/25/19 08:49 Dose: 81 mg Atorvastatin Calcium (Lipitor*) 40 mg PO DAILY [facility] Last Admin: 03/25/19 08:49 Dose: 40 mg Famotidine (Pepcid Tab*) 10 mg PO BID [facility] Last Admin: 03/25/19 08:49 Dose: 10 mg Folic Acid (Folvite Tab*) 1 mg PO DAILY [facility] Last Admin: 03/25/19 08:49 Dose: 1 mg Furosemide (Lasix Iv*) 20 mg IV ONCE ONE Stop: 03/25/19 13:58 Heparin Sodium (Porcine) (Heparin Flush Picc/Ml/Cvc(*)) 1 - 3 ml FLUSH 0600, 1800 [facility]; Protocol Last Admin: 03/25/19 06:11 Dose: 2 ml Ceftriaxone Sodium 1 gm/ (Sodium Chloride) 50 mls @ 100 mls/hr IVPB Q24H [facility] Last Admin: 03/25/19 11:18 Dose: 100 mls/hr Lactobacillus Rhamnosus (Lactobacillus Acidophilus*) 1 tab PO DAILY [facility] Last Admin: 03/25/19 08:50 Dose: 1 tab Morphine Sulfate (Morphine Inj (Syringe))*) 1 mg IV Q2H PRN PRN Reason: PAIN - SEVERE Last Admin: 03/22/19 14:50 Dose: 1 mg Pramipexole Dihydrochloride (Mirapex Tab*) 1 mg PO TID [facility] Last Admin: 03/25/19 08:49 Dose: 1 mg Rivaroxaban (Xarelto(*)) 15 mg PO DAILY [facility] Last Admin: 03/25/19 08:50 Dose: 15 mg Torsemide (Demadex*) 20 mg PO DAILY [facility] Last Admin: 03/25/19 08:53 Dose: 20 mg Vital Signs - 8 hr 03/25/19 11:47 Pulse Rate 79 Respiratory 18 Rate O2 Sat by Pulse 96 Oximetry Oxygen Devices in Use Now: None Appearance: 88 yo F inn nAD, aAOx2, poor historian Eyes: No Scleral Icterus, PERRLA Ears/Nose/Mouth/Throat: NL Teeth, Lips, Gums Neck: - - +JVD b/l Respiratory: Symmetrical Chest Expansion and Respiratory Effort, Clear to Auscultation, - - decreased breath sounds b/l Cardiovascular: RRR, - - 3/6 SORAYA at apex Abdominal: NL Sounds; No Tenderness; No Distention, No Hepatosplenomegaly Lymphatic: No Cervical Adenopathy Extremities: No Clubbing, Cyanosis, - - left ankle and calf edema, wound on calf posteriorly at 5 cm covered with eschar Skin: - - see above Neurological: NL Muscle Strength and Tone Result Diagrams: 03/25/19 06:25 03/25/19 06:25 Additional Lab and Data: Above labs were pulled into the note, when the note was edited prior to signing. See below for labs from the day of consultation. Laboratory Tests 03/21/19 03/23/19 03/23/19 21:04 04:28 04:28 WBC 18.3 H Hgb 11.8 L Hct 35 Plt Count 144 L Sodium 132 L Potassium 4.4 Chloride 106 Carbon Dioxide 19 L BUN 53 H Creatinine 1.63 H Glucose 156 H C-Reactive Protein 43.27 H Total Protein 6.3 L Albumin 3.9 Microbiology and Other Data: Diagnostic Imagin. Exam Date: 03/23/19 0152 - VL ANK/BRACHIAL INDICES Right: Value (SBP) Index Brachial: 95 Posterior tibialis: Not acquired Dorsalis pedis: Noncompressible Left: Value (SBP) Index Brachial: 95 Posterior tibialis: Not acquired Dorsalis pedis: Not acquired Doppler waveforms (acquired at rest): In the interrogated lower extremity arteries, Doppler waveforms are monophasic measured at the bilateral dorsalis pedis arteries. Volume pulse recordings (acquired at rest): Volume pulse recordings, measured at the bilateral ankles, are symmetric. IMPRESSION: 1. Noncompressibility of the right dorsalis pedis artery indicates calcified atherosclerosis preventing compression of the artery and therefore preventing acquisition of unreliable SUSHILA. 2. Arterial waveforms are monophasic at the bilateral dorsalis pedis artery indicating some degree of proximal arterial insufficiency. 3. Due to the pain the patient experienced, no further ABIs could be attempted at the right posterior tibial artery or the left pedal arteries. If there exists strong clinical suspicion for arterial insufficiency exacerbating the left lower extremity ulcers, clinical evaluation with a vascular specialist may be appropriate. 2. Exam Date: 03/22/19 0155 - CT EXTREMITY LOWER LEFT WO IMPRESSION: Edematous and or inflammatory changes involving the left lower leg. Assess/Plan/Problems-Billing Assessment: 88 yo F with h/o CHF, PAF, pacer presents with septic shock due to cellulitis - Patient Problems (1) Septic shock Comment: resolved, off Levophed (2) Cellulitis Comment: of L LE antibiotics adjusted from Zosyn to Ceftriaxone-ound cx positive for Acinetobacter and E.coli (3) CHF (congestive heart failure) Comment: Acute -suspect systolic will get Echo to eval for heart murmur and EF tx with another dose of Lasix IV Cont home Tosemide Low SBP limits the ability to diurese more will get medical records from PCP (4) Acute renal failure Comment: due to sepsis-improving unknown baseline (5) Paroxysmal A-fib Comment: on anticoagulation with Xarelto., paced cont on Amiodarone (6) DVT prophylaxis Comment: Xarelto Status and Disposition: inpatient
[2019-03-25] MEDS ORDERED: Perflutren Lipid Microsphere* 3 ML VIAL ONE (14:32)
--- NOTE | 2019-03-25 16:31 | ECHO ---
*[facility]* [place] [address] Fax #: [phone] Transthoracic Echocardiogram Patient: Sarah Atkins : 1930 Study Date: 03/25/2019 Age: 88 Gender: F HR: 75 bpm Height: 63 in /160 cm BSA: 1.58 m^2 Weight: 123.7 lb /56.2 kg BMI: 22 kg/m^2 *Numerical Control Router Operator: Madison Randolph [facility] [place] *Referring Physician: * Skyla Prather *Reading Physician: * Souleymane Patel MD Indications: Congestive Heart Failure. History: Atrial fibrillation. Congestive heart failure. PMH: Cardiomyopathy. Labs, prior tests, procedures, and surgery: Permanent pacemaker system implantation. Mitral valve replacement. Conclusions Summary: - Left ventricle: The cavity size is severely dilated. Wall thickness is mildly increased. Systolic function is severely reduced. The estimated ejection fraction is 10-15%. Diffuse hypokinesis with regional variations. - Right ventricle: The cavity size is mildly dilated. Systolic function is moderately reduced. - Left atrium: The atrium is severely dilated. - Mitral valve: There is a bioprosthesis. There is no evidence of stenosis. The peak E-wave velocity is 1.86 m/sec. The pressure half-time is 97 ms. The mean diastolic gradient is 7.0 mm Hg. - Tricuspid valve: There is moderate regurgitation. - Pulmonary arteries: Systolic pressure is severely increased. Recommendations: None prior for comparison at time of interpretation. No operative report available for review, cannot exclude a tricuspid valve annuloplasty Study data: Transthoracic echocardiogram. Procedure: Transthoracic echocardiography was performed. Image quality was fair. Intravenous Definity , 2 mlswas administered. Complete 2D, spectral Doppler, and color flow Doppler. Location: Bedside. Patient status: Inpatient. Patient room number: 447 02. Rhythm: Paced rhythm. Findings Left ventricle: The cavity size is severely dilated. Wall thickness is mildly increased. Systolic function is severely reduced. The estimated ejection fraction is 10-15%. Diffuse hypokinesis with regional variations. Left ventricular diastolic function parameters are indeterminate. Right ventricle: The cavity size is mildly dilated. Pacer wire noted in the right ventricle. Systolic function is moderately reduced. Left atrium: The atrium is severely dilated. Right atrium: The atrium is normal in size. Pacer wire noted in right atrium. Mitral valve: There is a bioprosthesis. The leaflets are mildly thickened. There is no evidence of stenosis. There is mild regurgitation. Aortic valve: The annulus is mildly calcified. The valve is trileaflet. The leaflets are mildly thickened. There is no evidence of stenosis. There is mild regurgitation. Tricuspid valve: The leaflets are normal thickness. There is no evidence of stenosis. There is moderate regurgitation. Pulmonic valve: The leaflets are normal thickness. There is no evidence of stenosis. There is trace regurgitation. Aorta: The aortic root appears normal. The aortic arch appears normal. Pericardium: There is no significant pericardial effusion. Pulmonary arteries: Not well visualized. Systolic pressure is severely increased. Systemic veins: Inferior vena cava: The vessel is dilated. There is (< 50%) respiratory change in the IVC dimension. Measurements Left ventricle Value Ref Aortic valve continued Value Ref JULIET, LAX (H) 7.1 cm 3.8 - 5.2 LVOT/AV, VTI ratio 0.48 ----- ESD, LAX (H) 7.1 cm 2.2 - 3.5 AR peak v 3.1 m/sec ----- FS, LAX (L) 1 % 27 - 45 AR PHT 399 ms ----- PW, ED, LAX (H) 1.4 cm 0.6 - 0.9 AR peak grad 38 mm Hg ----- E', lat alejandro, TDI (L) 4.0 cm/sec >=10.0 E/e', lat alejandro, 46 Mitral valve Value Re f TDI Peak E 1.86 m/sec ----- E', med alejandro, TDI (L) 3.9 cm/sec >=7.0 Peak A 1.22 m/sec ----- E/e', med alejandro, 48 Decel time 333 ms -- --- TDI PHT 97 ms ----- E', avg, TDI 4.0 cm/sec Mean grad, D 7.0 mm Hg -- --- E/e', avg, TDI (H) 47 <=14 Peak grad, D 13.8 mm Hg ----- Peak E/A ratio 1.52 ----- LVOT Value Ref MVA, PHT 2.3 cm^2 ----- Peak charlene, S 0.7 m/sec ERO, PISA 0.04 cm^2 ----- VTI, S 13.0 cm MR vol, PISA 6 ml ----- Peak grad, S 2 mm Hg Mean grad, S 1 mm Hg Pulmonic valve Value Ref Peak v, S 1 m/sec ----- Ventricular septum Value Ref Peak grad, S 4.0 mm Hg ----- IVS, ED (H) 1.1 cm 0.6 - 0.9 Tricuspid valve Value Ref Right ventricle Value Ref TR peak v (H) 4.01 m/sec <=2. 8 JULIET, LAX 3.9 cm Peak RV-RA grad, S 64 mm Hg ----- JULIET minor ax, A4C (H) 3.8 cm 1.9 - 3.5 Max TR charlene 4.01 m/sec ----- mid Pressure, S 60 mm Hg Aortic root Value Ref Root diam 2.6 cm <3.8 Left atrium Value Ref Root max diam, ED 2.6 cm <3.8 AP dim, ES (H) 5.30 cm 2.70 - 3.80 Ascending aorta Value Ref ML dim, A4C 5.6 cm AAo AP diam, S 2.9 cm ----- SI dim, A4C 6.3 cm AAo AP diam/bsa, S 1.8 cm/m^2 ----- Vol/bsa, ES, 1-p (H) 70 ml/m^2 11 - 40 A4C Aortic arch Value Ref Arch diam 3.0 cm ----- Right atrium Value Ref SI dim, ES 5.1 cm 3.4 - 5.3 Decending aorta Value Ref ML dim, ES, A4C 4.4 cm 2.6 - 4.4 Brenton peak charlene 0.38 m/sec ----- Estimated RAP 8 mm Hg Inferior vena cava Value Ref Aortic valve Value Ref Diam 2.7 cm ----- Alejandro diam, ED 1.9 cm Peak v, S 1.42 m/sec VTI, S 27.2 cm Mean grad, S 4.0 mm Hg Peak grad, S 8.0 mm Hg Legend: (L) and (H) mala values outside specified reference range. Prepared and electronically signed by Souleymane Patel MD 03/25/2019 16:30
[2019-03-25] MEDS ORDERED: Furosemide IV* 10 MG/ML VIAL (40 MG) IV ONE (18:06)
[2019-03-25] MEDS ORDERED: Furosemide IV* 10 MG/ML VIAL (40 MG) ONE (18:13)
[2019-03-25] MEDS: Acetaminophen TAB* 325 MG PO PRN (21:24)
[2019-03-26 05:44] LABS: Calcium 8.1 mg/dL (8.6-10.3); Potassium 4.7 mmol/L (3.5-5.0)
[2019-03-26 05:49] LABS: BUN/Creatinine Ratio 36.7 (8-20); EGFR African American 37.3 (>60); EGFR Non-African American 30.8 (>60)
[2019-03-26] MEDS: cefTRIAXone(*) 1 GM in NS 0.9% 50 ML* 50 ML IVPB SCH (08:51)
[2019-03-26] MEDS: Atorvastatin* 40 MG TAB PO SCH (08:54)
[2019-03-26] MEDS: Folic Acid TAB* 1 MG PO SCH (08:54)
[2019-03-26] MEDS: Famotidine TAB* 20 MG PO SCH ×2 (08:54→21:21)
[2019-03-26] MEDS: Amiodarone TAB* 200 MG PO SCH (08:55)
[2019-03-26] MEDS: Lactobacillus Acidophilus* 1 TAB PO SCH (08:55)
[2019-03-26] MEDS: Pramipexole TAB* 0.5 MG PO SCH ×3 (08:55→21:22)
[2019-03-26] MEDS ORDERED: Torsemide TAB* 20 MG PO SCH (08:57)
[2019-03-26] MEDS: Rivaroxaban TAB(*) 15 MG PO SCH (08:58)
[2019-03-26] MEDS: Torsemide TAB* 20 MG PO SCH (08:58)
[2019-03-26] MEDS: Aspirin EC TAB* 81 MG TAB.EC PO SCH (08:58)
[2019-03-26] MEDS ORDERED: Furosemide IV* 10 MG/ML VIAL (40 MG) IV ONE ×2 (09:10→12:00)
[2019-03-26] MEDS ORDERED: Digoxin IV* 0.5 MG/2 ML AMP (0.25 MG/ML) IV SLOW PU ONE ×2 (09:11→17:00)
--- NOTE | 2019-03-26 09:19 | CONSULT ---
Subjective Date of Service: 03/26/19 Interval History: Admission Date: 03/22/19 Consult date 03/26/2019 Service Hospitalist PRIMARY CARE PROVIDER: Dr. Rodney. OUTPATIENT EXPORT FREIGHT SPECIALIST: Dr. Parson. CHIEF COMPLAINT: Edema, fevers HISTORY OF PRESENT ILLNESS: Sarah Atkins is an 88-year-old woman with a history as below. She was admitted with a leg wound, worsening edema and shortness of breath. She was admitted and treated for cellulitis. At the time of my examination she is sitting in bed tachypneic in obvious decompensated HF. She has no chest pain. Her BP has been low. There is no family present. She is listed as DNR Pmhx: systolic CHF dementia status post porcine valve atrial fibrillation. PAST SURGICAL HISTORY: It is unclear if she has had surgeries, but she has had issues with right rotator cuff, back and hand osteoarthritis. ALLERGIES: No known drug allergies. FAMILY HISTORY: mother of dementia at age 86 father of heart disease and phlebitis at age 88. SOCIAL HISTORY: The patient is a never smoker. No significant alcohol or drug use. 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 Notably, her just a few weeks ago. Medications Active Medications: Acetaminophen (Tylenol Tab*) 650 mg PO Q6H PRN PRN Reason: PAIN - MILD Last Admin: 03/25/19 21:24 Dose: 650 mg Albuterol/Ipratropium (Duoneb (Albuterol 2.5 Mg/Ipratropium 0.5 Mg)) 1 neb INH [id number] AWAKE PRN PRN Reason: SOB/WHEEZING Last Admin: 03/25/19 17:20 Dose: 1 neb Amiodarone HCl (Cordarone Tab*) 100 mg PO DAILY [facility] Last Admin: 03/26/19 08:55 Dose: 100 mg Aspirin (Aspirin Ec Tab*) 81 mg PO DAILY [facility] Last Admin: 03/26/19 08:58 Dose: 81 mg Atorvastatin Calcium (Lipitor*) 40 mg PO DAILY [facility] Last Admin: 03/26/19 08:54 Dose: 40 mg Famotidine (Pepcid Tab*) 10 mg PO BID [facility] Last Admin: 03/26/19 08:54 Dose: 10 mg Folic Acid (Folvite Tab*) 1 mg PO DAILY [facility] Last Admin: 03/26/19 08:54 Dose: 1 mg Heparin Sodium (Porcine) (Heparin Flush Picc/Ml/Cvc(*)) 1 - 3 ml FLUSH 0600, 1800 [facility]; Protocol Last Admin: 03/26/19 05:08 Dose: 3 ml Ceftriaxone Sodium 1 gm/ (Sodium Chloride) 50 mls @ 100 mls/hr IVPB Q24H [facility] Last Admin: 03/26/19 08:51 Dose: 100 mls/hr Lactobacillus Rhamnosus (Lactobacillus Acidophilus*) 1 tab PO DAILY [facility] Last Admin: 03/26/19 08:55 Dose: 1 tab Morphine Sulfate (Morphine Inj (Syringe))*) 1 mg IV Q2H PRN PRN Reason: PAIN - SEVERE Last Admin: 03/22/19 14:50 Dose: 1 mg Pramipexole Dihydrochloride (Mirapex Tab*) 1 mg PO TID [facility] Last Admin: 03/26/19 08:55 Dose: 1 mg Rivaroxaban (Xarelto(*)) 15 mg PO DAILY [facility] Last Admin: 03/26/19 08:58 Dose: Not Given Torsemide (Demadex*) 20 mg PO DAILY [facility] Home Medications: Amiodarone HCl [Amiodarone HCl-] 100 mg PO DAILY 03/22/19 [History Confirmed ] Aspirin [Aspir-Low] 81 mg PO DAILY 03/22/19 [History Confirmed 03/22/19] Atorvastatin Calcium [Lipitor] 40 mg PO DAILY 03/22/19 [History Confirmed ] Enalapril Maleate 2.5 mg PO DAILY 03/22/19 [History Confirmed 03/22/19] Famotidine 20 mg PO BID 03/22/19 [History Confirmed 03/22/19] Folic Acid TAB* [Folvite TAB*] 1 tab PO DAILY 03/22/19 [History Confirmed ] Metoprolol Succinate [Metoprolol Succinate ER] 25 mg PO DAILY 03/22/19 [History Confirmed 03/22/19] Potassium Chloride 1 tab PO DAILY 03/22/19 [History Confirmed 03/22/19] Pramipexole [Mirapex] 1 mg PO TID 03/22/19 [History Confirmed 03/22/19] Rivaroxaban TAB(*) [Xarelto 15 mg(*)] 15 mg PO DAILY 03/22/19 [History Confirmed 03/22/19] Spironolactone 25 mg PO DAILY 03/22/19 [History Confirmed 03/22/19] Torsemide 2 tab PO DAILY 03/22/19 [History Confirmed 03/22/19] Ubiquinol [Active-Q] 300 mg PO DAILY 03/22/19 [History Confirmed 03/22/19] Review of Systems - Measurements Intake and Output: Intake and Output Last 24 Hours 03/24/19 03/25/19 03/26/19 03/27/19 06:59 06:59 06:59 06:59 Intake Total 2375 480 1880 480 Output Total 8476 906 3019 100 Balance 1375 165 677 380 Weight 132 lb 0.91 oz 134 lb 3.2 oz 131 lb 9.6 oz Intake: IV Fluids 91 ABX 91 IVPB 121 ABX 121 Medicated IV 253 Levophed 253 Oral 1836 319 4369 480 Output: Urine 567 502 9304 100 Turner 200 Straight Cath 3 Other: Estimated Void Medium Date of Last Bowel 03/23/2019 03/25/2019 Movement # Bowel Movements 1 1 Estimated Stool Amount Small Small # Voids 1 - Review of Systems Review of Systems Statement: All other review of systems negative, unless stated above. Objective Vital Signs: Temp Pulse Resp BP Pulse Ox 97.8 F 74 20 91/67 100 03/26/19 07:58 03/26/19 07:58 03/26/19 07:58 03/26/19 07:58 03/26/19 07:58 Oxygen Devices in Use Now: None Appearance: acutely ill appearing, able to speak in short sentence Ears/Nose/Mouth/Throat: Clear Oropharnyx Neck: Trachea Midline, - - uncertain jvp Respiratory: - - increased work of breathing with tachypnea, b/l rales Abdominal: NL Sounds; No Tenderness; No Distention Extremities: - - warm, 2+ diffuse edema, legs wrapped Skin: No Nodules or Sclerosis Neurological: - - awake and alert Laboratory Results: 03/25/19 06:25 03/26/19 05:00 INR (Anticoag Therapy) 2.37 (0.82-1.09) H 03/21/19 21:04 APTT 36.8 seconds (26.0-38.0) 03/21/19 21:04 Total Bilirubin 1.80 mg/dL (0.2-1.0) H 03/21/19 21:04 AST 20 U/L (13-39) 03/21/19 21:04 ALT 18 U/L (7-52) 03/21/19 21:04 Alkaline Phosphatase 132 U/L (34-104) H 03/21/19 21:04 B-Natriuretic Peptide > 1300 pg/mL (<=100) H 03/21/19 21:04 Total Protein 6.3 g/dL (6.4-8.9) L 03/21/19 21:04 Albumin 3.9 g/dL (3.2-5.2) 03/21/19 21:04 Globulin 2.4 g/dL (2-4) 03/21/19 21:04 Albumin/Globulin Ratio 1.6 (1-3) 03/21/19 21:04 Diagnostic Imaging: Transthoracic Echocardiogram Study Date: 03/25/2019 Summary: - Left ventricle: The cavity size is severely dilated. Wall thickness is mildly increased. Systolic function is severely reduced. The estimated ejection fraction is 10-15%. Diffuse hypokinesis with regional variations. - Right ventricle: The cavity size is mildly dilated. Systolic function is moderately reduced. - Left atrium: The atrium is severely dilated. - Mitral valve: There is a bioprosthesis. There is no evidence of stenosis. The peak E-wave velocity is 1.86 m/sec. The pressure half-time is 97 ms. The mean diastolic gradient is 7.0 mm Hg. - Tricuspid valve: There is moderate regurgitation. - Pulmonary arteries: Systolic pressure is severely increased. Recommendations: None prior for comparison at time of interpretation. 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 Acute on chronic low output systolic CHF - Likely secondary to #6 2. MV replacement 3. Pulmonary HTN - Likely group II 4. Afib 5. BiV-ICD 6. Sepsis from traumatic left lower extremity wound 7. Renal dysfunction - Uncertain baseline - Digoxin 500 mcg x 1 now (ordered) - Continue torsemide 20 mg po daily - 80 mg IV lasix x 1 now (ordered) - Follow weights, I/O - continue amiodarone - BMP, Mg, TSH tomorrow (ordered) - AceI and BB held - Continue xarelto 15 mg po daily - Will have holding parameters of SBP 80 mmHg for all meds - Obtain prior cardiology records - Consider Palliative medicine consult - Discussed with Dr. Prather Thank you for allowing me to participate in the cardiovascular care of this patient. Please do not hesitate to contact me with questions or concerns.
--- NOTE | 2019-03-26 14:25 | PN ---
Subjective Date of Service: 03/26/19 Interval History: Pt just waked to bathroom and back . O2 sat down to 83% on RA, when sat down in bed recovered to 93% on RA, but still with mild increase on WOB. stated that she feels fine and is not SOB Had epistaxis today and Xarelto will be held for a day Family History: Unchanged from Admission Social History: Unchanged from Admission Past Medical History: Unchanged from Admission Objective Active Medications: Acetaminophen (Tylenol Tab*) 650 mg PO Q6H PRN PRN Reason: PAIN - MILD Last Admin: 03/25/19 21:24 Dose: 650 mg Albuterol/Ipratropium (Duoneb (Albuterol 2.5 Mg/Ipratropium 0.5 Mg)) 1 neb INH [id number] AWAKE PRN PRN Reason: SOB/WHEEZING Last Admin: 03/25/19 17:20 Dose: 1 neb Amiodarone HCl (Cordarone Tab*) 100 mg PO DAILY [facility] Last Admin: 03/26/19 08:55 Dose: 100 mg Aspirin (Aspirin Ec Tab*) 81 mg PO DAILY [facility] Last Admin: 03/26/19 08:58 Dose: 81 mg Atorvastatin Calcium (Lipitor*) 40 mg PO DAILY [facility] Last Admin: 03/26/19 08:54 Dose: 40 mg Famotidine (Pepcid Tab*) 10 mg PO BID [facility] Last Admin: 03/26/19 08:54 Dose: 10 mg Folic Acid (Folvite Tab*) 1 mg PO DAILY [facility] Last Admin: 03/26/19 08:54 Dose: 1 mg Heparin Sodium (Porcine) (Heparin Flush Picc/Ml/Cvc(*)) 1 - 3 ml FLUSH 0600, 1800 [facility]; Protocol Last Admin: 03/26/19 05:08 Dose: 3 ml Ceftriaxone Sodium 1 gm/ (Sodium Chloride) 50 mls @ 100 mls/hr IVPB Q24H [facility] Last Admin: 03/26/19 08:51 Dose: 100 mls/hr Lactobacillus Rhamnosus (Lactobacillus Acidophilus*) 1 tab PO DAILY [facility] Last Admin: 03/26/19 08:55 Dose: 1 tab Pramipexole Dihydrochloride (Mirapex Tab*) 1 mg PO TID [facility] Last Admin: 03/26/19 14:18 Dose: 1 mg Rivaroxaban (Xarelto(*)) 15 mg PO DAILY [facility] Last Admin: 03/26/19 08:58 Dose: Not Given Torsemide (Demadex*) 20 mg PO DAILY [facility] Vital Signs - 8 hr 03/26/19 03/26/19 03/26/19 07:58 08:00 09:47 Temperature 97.8 F Pulse Rate 74 77 Respiratory 20 20 Rate Blood Pressure 91/67 (mmHg) O2 Sat by Pulse 100 100 Oximetry 03/26/19 11:48 Temperature 98.2 F Pulse Rate 74 Respiratory 24 Rate Blood Pressure 124/53 (mmHg) O2 Sat by Pulse 100 Oximetry Oxygen Devices in Use Now: None Appearance: 88 yo F in nAD, AAOx2, poor historian Eyes: No Scleral Icterus, PERRLA Ears/Nose/Mouth/Throat: NL Teeth, Lips, Gums, Mucous Membranes Moist Neck: NL Appearance and Movements; NL JVP, Trachea Midline Respiratory: Symmetrical Chest Expansion and Respiratory Effort, - - rales b/l base to mid lungs Cardiovascular: RRR, - - 2/6 SORAYA at apex Abdominal: NL Sounds; No Tenderness; No Distention, No Hepatosplenomegaly Lymphatic: No Cervical Adenopathy Extremities: No Clubbing, Cyanosis, - - +2 b/l calf edema Skin: - - left calf wound wrapped, not examined today Neurological: NL Muscle Strength and Tone Result Diagrams: 03/25/19 06:25 03/26/19 05:00 Additional Lab and Data: Above labs were pulled into the note, when the note was edited prior to signing. See below for labs from the day of consultation. Laboratory Tests 03/21/19 03/23/19 03/23/19 21:04 04:28 04:28 WBC 18.3 H Hgb 11.8 L Hct 35 Plt Count 144 L Sodium 132 L Potassium 4.4 Chloride 106 Carbon Dioxide 19 L BUN 53 H Creatinine 1.63 H Glucose 156 H C-Reactive Protein 43.27 H Total Protein 6.3 L Albumin 3.9 Microbiology and Other Data: Diagnostic Imagin. Exam Date: 03/23/19 0152 - VL ANK/BRACHIAL INDICES Right: Value (SBP) Index Brachial: 95 Posterior tibialis: Not acquired Dorsalis pedis: Noncompressible Left: Value (SBP) Index Brachial: 95 Posterior tibialis: Not acquired Dorsalis pedis: Not acquired Doppler waveforms (acquired at rest): In the interrogated lower extremity arteries, Doppler waveforms are monophasic measured at the bilateral dorsalis pedis arteries. Volume pulse recordings (acquired at rest): Volume pulse recordings, measured at the bilateral ankles, are symmetric. IMPRESSION: 1. Noncompressibility of the right dorsalis pedis artery indicates calcified atherosclerosis preventing compression of the artery and therefore preventing acquisition of unreliable SUSHILA. 2. Arterial waveforms are monophasic at the bilateral dorsalis pedis artery indicating some degree of proximal arterial insufficiency. 3. Due to the pain the patient experienced, no further ABIs could be attempted at the right posterior tibial artery or the left pedal arteries. If there exists strong clinical suspicion for arterial insufficiency exacerbating the left lower extremity ulcers, clinical evaluation with a vascular specialist may be appropriate. 2. Exam Date: 03/22/19 0155 - CT EXTREMITY LOWER LEFT WO IMPRESSION: Edematous and or inflammatory changes involving the left lower leg. Assess/Plan/Problems-Billing Assessment: 88 yo F with h/o CHF, PAF, pacer presents with septic shock due to cellulitis - Patient Problems (1) Septic shock Comment: resolved, off Levophed (2) Cellulitis Comment: of L LE antibiotics adjusted from Zosyn to Ceftriaxone-wound cx positive for Acinetobacter and E.coli (3) CHF (congestive heart failure) Comment: Acute -systolic Echo shows know EF 10% and prosthetic mitral valve with mod regurg. appreciate Dr. Richardson's consult. Pt is in decompensated severe CHF. Palliative consult recommended. Pt and daughter agree to pt going home with [facility]. They don' t want STR Tx with Lasix 80 mg IV today and digoxin 0.5 mg IV. Cont home Tosemide Low SBP limits the ability to diurese more (4) Acute renal failure Comment: due to sepsis-improved, now stable at 1.5 unknown baseline (5) Paroxysmal A-fib Comment: on anticoagulation with Xarelto., paced cont on Amiodarone (6) DVT prophylaxis Comment: Xarelto Status and Disposition: inpatient
--- NOTE | 2019-03-26 14:42 | CONSULT ---
Palliative / Hospice Consult Ordering Provider: Skyla Prather - No PCP Referal Reason: Goals of care/no bowel meds/no narcotics - Subjective Code Status: DNR Advance Directives Location: No Advance Directives MOLST Part A Completed: Yes - on chart MOLST Part E Completed:: Yes - on chart - History or Present Illness History or Present Illness: 88yo female with severe HF presents with L lower leg pain and swelling. PMH is significant for severe CHF EF 10-15% for several years, mild dementia, restless leg, MV prolapse, s/p porcine MV replacement, paroxysmal afib with pacer and pulmonary HTN. PSHx recently 02/27/2019, in SNF was living independently on [address] with 4 hrs aide help 6 days a week, no tob use, no drug, rare etoh, daughter Vivi is her HCP [phone] whom she recently moved in with, there are 2 other siblings on [address]. Studies CXR- cardiomegaly, lower leg CT edematous and inflammatory changes, CXR #2-PICC decreased aeration R mid lung, arterial study was limited, ECHO-EF 10-15%, severely dilated LV with diffuse hypokinesis, bioprosthetic MV, increased systolic pressure, H/H , BUN/Cr 58/1.58, egfr 30.8, Ca 8.1, alb 3.9, BNP> 1300, inr 2.37, BC- and wound cult E.Coli & A Jejuni. Pt was admitted to ICU with presumed sepsis from leg wound, heart failure, JIMMY and afib for blood pressure support, transferred to floor 4 days later. All history is from family and medical record. Lab Values: Abnormal Lab Results 03/26/19 05:00 Sodium 134 L Potassium 4.7 Chloride 105 Carbon Dioxide 20 L Anion Gap 9 BUN 58 H Creatinine 1.58 H Est GFR ( Amer) 37.3 Est GFR (Non-Af Amer) 30.8 BUN/Creatinine Ratio 36.7 H Glucose 131 H Calcium 8.1 L Laboratory Last Values WBC 10.8 10^3/uL (3.5-10.8) 03/25/19 06:25 RBC 3.10 10^6 /uL (3.70-4.87) L 03/25/19 06:25 Hgb 11.0 g/dL (12.0-16.0) L 03/25/19 06:25 Hct 31 % (35-47) L 03/25/19 06:25 MCV 100 fL (80-97) H 03/25/19 06:25 MCH 35 pg (27-31) H 03/25/19 06:25 MCHC 35 g/dL (31-36) 03/25/19 06:25 RDW 16 % (10-15) H 03/25/19 06:25 Plt Count 130 10^3/uL (150-450) L 03/25/19 06:25 MPV 7.5 fL (7.4-10.4) 03/25/19 06:25 Neut % (Auto) 83.7 % 03/25/19 06:25 Lymph % (Auto) 5.5 % 03/25/19 06:25 Cherry % (Auto) 8.5 % 03/25/19 06:25 Eos % (Auto) 2.0 % 03/25/19 06:25 Baso % (Auto) 0.3 % 03/25/19 06:25 Absolute Neuts (auto) 9.0 10^3/ul (1.5-7.7) H 03/25/19 06:25 Absolute Lymphs (auto) 0.6 10^3/ul (1.0-4.8) L 03/25/19 06:25 Absolute Monos (auto) 0.9 10^3/ul (0-0.8) H 03/25/19 06:25 Absolute Eos (auto) 0.2 10^3/ul (0-0.6) 03/25/19 06:25 Absolute Basos (auto) 0.0 10^3/ul (0-0.2) 03/25/19 06:25 Absolute Nucleated RBC 0.0 10^3/ul 03/25/19 06:25 Nucleated RBC % 0.0 03/25/19 06:25 INR (Anticoag Therapy) 2.37 (0.82-1.09) H 03/21/19 21:04 APTT 36.8 seconds (26.0-38.0) 03/21/19 21:04 Sodium 134 mmol/L (135-145) L 03/26/19 05:00 Potassium 4.7 mmol/L (3.5-5.0) 03/26/19 05:00 Chloride 105 mmol/L (101-111) 03/26/19 05:00 Carbon Dioxide 20 mmol/L (22-32) L 03/26/19 05:00 Anion Gap 9 mmol/L (2-11) 03/26/19 05:00 BUN 58 mg/dL (6-24) H 03/26/19 05:00 Creatinine 1.58 mg/dL (0.51-0.95) H 03/26/19 05:00 Est GFR ( Amer) 37.3 (>60) 03/26/19 05:00 Est GFR (Non-Af Amer) 30.8 (>60) 03/26/19 05:00 BUN/Creatinine Ratio 36.7 (8-20) H 03/26/19 05:00 Glucose 131 mg/dL (70-100) H 03/26/19 05:00 Lactic Acid 1.4 mmol/L (0.5-2.0) 03/21/19 23:34 Calcium 8.1 mg/dL (8.6-10.3) L 03/26/19 05:00 Total Bilirubin 1.80 mg/dL (0.2-1.0) H 03/21/19 21:04 AST 20 U/L (13-39) 03/21/19 21:04 ALT 18 U/L (7-52) 03/21/19 21:04 Alkaline Phosphatase 132 U/L (34-104) H 03/21/19 21:04 C-Reactive Protein 43.27 mg/L (<8.01) H 03/21/19 21:04 B-Natriuretic Peptide > 1300 pg/mL (<=100) H 03/21/19 21:04 Total Protein 6.3 g/dL (6.4-8.9) L 03/21/19 21:04 Albumin 3.9 g/dL (3.2-5.2) 03/21/19 21:04 Globulin 2.4 g/dL (2-4) 03/21/19 21:04 Albumin/Globulin Ratio 1.6 (1-3) 03/21/19 21:04 Urine Color Yellow 03/22/19 01:16 Urine Appearance Cloudy 03/22/19 01:16 Urine pH 5.0 (5-9) 03/22/19 01:16 Ur Specific [place] 1.009 (1.010-1.030) L 03/22/19 01:16 Urine Protein Negative (Negative) 03/22/19 01:16 Urine Ketones Negative (Negative) 03/22/19 01:16 Urine Blood Negative (Negative) 03/22/19 01:16 Urine Nitrate Negative (Negative) 03/22/19 01:16 Urine Bilirubin Negative (Negative) 03/22/19 01:16 Urine Urobilinogen Negative (Negative) 03/22/19 01:16 Ur Leukocyte Esterase 3+ (Negative) A 03/22/19 01:16 Urine WBC (Auto) 3+(>20/hpf) (Absent) A 03/22/19 01:16 Urine RBC (Auto) Trace(0-2/hpf) (Absent) 03/22/19 01:16 Ur Squamous Epith Cells Present (Absent) A 03/22/19 01:16 Urine Bacteria Absent (Absent) 03/22/19 01:16 Ur Creatinine Concen 25.50 mg/dL 03/22/19 07:04 Ur Urea Nitrogen Conc 375 mg/dL 03/22/19 07:04 Urine Glucose Negative (Negative) 03/22/19 01:16 Urine Ascorbic Acid * (Negative) A 03/22/19 01:16 - Objective Active Medications: Acetaminophen (Tylenol Tab*) 650 mg PO Q6H PRN PRN Reason: PAIN - MILD Last Admin: 03/25/19 21:24 Dose: 650 mg Albuterol/Ipratropium (Duoneb (Albuterol 2.5 Mg/Ipratropium 0.5 Mg)) 1 neb INH [id number] AWAKE PRN PRN Reason: SOB/WHEEZING Last Admin: 03/25/19 17:20 Dose: 1 neb Amiodarone HCl (Cordarone Tab*) 100 mg PO DAILY [facility] Last Admin: 03/26/19 08:55 Dose: 100 mg Aspirin (Aspirin Ec Tab*) 81 mg PO DAILY [facility] Last Admin: 03/26/19 08:58 Dose: 81 mg Atorvastatin Calcium (Lipitor*) 40 mg PO DAILY [facility] Last Admin: 03/26/19 08:54 Dose: 40 mg Famotidine (Pepcid Tab*) 10 mg PO BID [facility] Last Admin: 03/26/19 08:54 Dose: 10 mg Folic Acid (Folvite Tab*) 1 mg PO DAILY [facility] Last Admin: 03/26/19 08:54 Dose: 1 mg Heparin Sodium (Porcine) (Heparin Flush Picc/Ml/Cvc(*)) 1 - 3 ml FLUSH 0600, 1800 [facility]; Protocol Last Admin: 03/26/19 05:08 Dose: 3 ml Ceftriaxone Sodium 1 gm/ (Sodium Chloride) 50 mls @ 100 mls/hr IVPB Q24H [facility] Last Admin: 03/26/19 08:51 Dose: 100 mls/hr Lactobacillus Rhamnosus (Lactobacillus Acidophilus*) 1 tab PO DAILY [facility] Last Admin: 03/26/19 08:55 Dose: 1 tab Pramipexole Dihydrochloride (Mirapex Tab*) 1 mg PO TID [facility] Last Admin: 03/26/19 14:18 Dose: 1 mg Rivaroxaban (Xarelto(*)) 15 mg PO DAILY [facility] Last Admin: 03/26/19 08:58 Dose: Not Given Torsemide (Demadex*) 20 mg PO DAILY [facility] Vital Signs: Vital Signs: Temp Pulse Resp BP Pulse Ox 98.2 F 74 24 124/53 100 03/26/19 11:48 03/26/19 11:48 03/26/19 11:48 03/26/19 11:48 03/26/19 11:48 Patient Weight: Weight 59.693 kg Intake and Output: Intake & Output 03/24/19 03/25/19 03/26/19 03/27/19 06:59 06:59 06:59 06:59 Intake Total 2375 480 1880 1140 Output Total 6366 823 4542 300 Balance 1375 165 677 840 Weight 59.9 kg 60.872 kg 59.693 kg Intake: IV Fluids 91 ABX 91 IVPB 121 ABX 121 Medicated IV 253 Levophed 253 Oral 9084 729 7297 1140 Output: Urine 780 172 5929 300 Turner 200 Straight Cath 3 Other: Estimated Void Medium Date of Last Bowel 03/23/2019 03/25/2019 03/26/19 Movement # Bowel Movements 1 1 1 Estimated Stool Amount Small Small Small # Voids 1 ADLs: Meal Record Start: 03/22/19 02: 18 Freq: 09,13,18 Status: Inactive Protocol: Created 03/22/19 02:18 System (Rec: 03/22/19 02:18 System IMG-CS84) Document 03/22/19 09:00 [id number] (Rec: 03/22/19 09:56 [id number] ICU-M34) Document 03/22/19 13:00 [id number] (Rec: 03/22/19 15:36 IJT2579 ICU-M34) Document 03/22/19 18:00 [id number] (Rec: 03/22/19 18:56 [id number] ICU-M34) Document 03/23/19 09:00 [id number] (Rec: 03/23/19 10:54 FXH0930 ICU-M34) Document 03/23/19 13:00 QRQ8583 (Rec: 03/23/19 14:13 [id number] ICU-C12) Document 03/23/19 18:00 [id number] (Rec: 03/23/19 21:36 EDG1668 ICU-C07) Document 03/24/19 09:00 URF9598 (Rec: 03/24/19 09:21 [id number] ICU-C07) ADLs: Meal Record Start: 03/24/19 22: 47 Freq: Status: Active Protocol: Created 03/24/19 22:47 [id number] (Rec: 03/24/19 22:47 CFF1669 TELE-C07) Document 03/25/19 09:41 [id number] (Rec: 03/25/19 09:42 [id number] TELE-C07) Intake and Output Start: 03/21/19 19: 31 Freq: Status: Cancelled Protocol: Created 03/21/19 19:31 System (Rec: 03/21/19 19:31 System ED-C24) Intake and Output Start: 03/22/19 02: 18 Freq: Q1HR Status: Inactive Protocol: Created 03/22/19 02:18 System (Rec: 03/22/19 02:18 System IMG-CS84) Document 03/22/19 04:00 [id number] (Rec: 03/22/19 04:17 SZG1092 ICU-C06) Document 03/22/19 05:00 TMU5780 (Rec: 03/22/19 05:43 WGH4193 ICU-C06) Document 03/22/19 06:00 GLS5390 (Rec: 03/22/19 06:15 VST1469 ICU-C06) Document 03/22/19 07:00 BCL6197 (Rec: 03/22/19 07:05 TNA5918 ICU-M34) Document 03/22/19 09:00 TLI7828 (Rec: 03/22/19 09:03 CWR5807 ICU-M34) Document 03/22/19 09:55 HGG1982 (Rec: 03/22/19 09:55 TJQ4632 ICU-M34) Document 03/22/19 12:00 ZGU7567 (Rec: 03/22/19 12:09 RBW0287 ICU-C07) Document 03/22/19 15:58 CDX2579 (Rec: 03/22/19 15:58 [id number] ICU-M34) Document 03/22/19 19:00 AJH7886 (Rec: 03/22/19 19:59 RYS7507 ICU-C07) Document 03/22/19 20:00 TGS4291 (Rec: 03/22/19 20:27 KMS5245 ICU-C07) Document 03/22/19 21:00 FQL0329 (Rec: 03/22/19 21:52 [id number] ICU-C07) Document 03/22/19 21:54 WRP3624 (Rec: 03/22/19 21:56 HKU1695 ICU-C07) Document 03/22/19 23:00 XWU8186 (Rec: 03/22/19 23:05 SHE2946 ICU-C07) Document 03/23/19 00:00 JTH5510 (Rec: 03/23/19 00:07 BXJ8910 ICU-C07) Document 03/23/19 01:00 HRN1042 (Rec: 03/23/19 01:04 BZS0941 ICU-C07) Document 03/23/19 02:00 ADG6094 (Rec: 03/23/19 02:35 TKN2542 ICU-C07) Document 03/23/19 03:00 LLL1850 (Rec: 03/23/19 03:03 TUF3393 ICU-C07) Document 03/23/19 04:00 UGA5988 (Rec: 03/23/19 05:30 JEV1917 ICU-C07) Document 03/23/19 05:00 JRS6343 (Rec: 03/23/19 05:31 JUG6415 ICU-C07) Document 03/23/19 06:00 TXH9450 (Rec: 03/23/19 06:30 [id number] ICU-C07) Document 03/23/19 06:54 YZF3444 (Rec: 03/23/19 06:55 IYU9564 ICU-C07) Document 03/23/19 07:33 DAK8017 (Rec: 03/23/19 07:34 SLG3998 ICU-M34) Document 03/23/19 11:00 UNZ8734 (Rec: 03/23/19 11:37 LIS6096 ICU-C12) Document 03/23/19 14:00 FNO3888 (Rec: 03/23/19 14:43 GZS8511 ICU-C12) Document 03/23/19 17:52 GKO0719 (Rec: 03/23/19 17:53 QTO8986 ICU-M34) Document 03/23/19 19:00 IQJ6025 (Rec: 03/23/19 19:45 ZLP5909 ICU-C07) Document 03/23/19 20:00 CLP5083 (Rec: 03/23/19 20:30 DFF0600 ICU-C07) Document 03/23/19 21:00 BTR9445 (Rec: 03/23/19 22:05 PBE5248 ICU-C07) Document 03/23/19 22:00 AUM1026 (Rec: 03/23/19 22:06 OXH9707 ICU-C07) Document 03/23/19 23:00 VJW5485 (Rec: 03/23/19 23:18 TIQ7165 ICU-C07) Document 03/24/19 00:00 AJP9463 (Rec: 03/24/19 00:18 ZVH1812 ICU-C07) Document 03/24/19 00:55 PWQ4038 (Rec: 03/24/19 00:55 RKN6466 ICU-C07) Document 03/24/19 01:59 DQM1010 (Rec: 03/24/19 01:59 DBW4267 ICU-C07) Document 03/24/19 03:00 QGB4043 (Rec: 03/24/19 03:21 XQJ3662 ICU-C07) Document 03/24/19 04:00 IBZ1542 (Rec: 03/24/19 04:11 VAE2363 ICU-C07) Document 03/24/19 05:00 ELY1000 (Rec: 03/24/19 05:07 KRQ8467 ICU-M34) Document 03/24/19 06:00 LHH0112 (Rec: 03/24/19 06:13 MWW1749 ICU-C07) Document 03/24/19 07:00 CYY7561 (Rec: 03/24/19 08:09 GNJ5458 ICU-C07) Document 03/24/19 08:00 MBG9071 (Rec: 03/24/19 08:58 MCI5735 ICU-C07) Document 03/24/19 09:00 QNA8688 (Rec: 03/24/19 09:21 XCJ0378 ICU-C07) Document 03/24/19 10:00 HTW3048 (Rec: 03/24/19 10:06 ACV3051 ICU-M34) Document 03/24/19 11:00 MWH1247 (Rec: 03/24/19 11:29 DOL1995 ICU-C07) Intake and Output Start: 03/25/19 13: 57 Freq: 06,14,2200 Status: Active Protocol: Created 03/25/19 13:57 MUW5529 (Rec: 03/25/19 13:57 BKG [facility]-BG12) Document 03/25/19 14:00 FIA2575 (Rec: 03/25/19 14:16 MAX2595 TELE-C10) Document 03/25/19 21:14 AFH2758 (Rec: 03/25/19 21:15 WIC6632 TELE-C07) Document 03/26/19 05:57 TIG5510 (Rec: 03/26/19 05:57 YKJ8848 TELE-C09) Document 03/26/19 08:34 EII0413 (Rec: 03/26/19 08:35 AJU7848 TELE-C07) Document 03/26/19 14:00 URA9262 (Rec: 03/26/19 14:07 YRM3588 TELE-C07) Eyes: No Scleral Icterus, PERRLA Ears/Nose/Mouth/Throat: NL Teeth, Lips, Gums Neck: - - +JVD b/l Cardiovascular: RRR, - - 3/6 SORAYA at apex Abdominal: NL Sounds; No Tenderness; No Distention, No Hepatosplenomegaly Extremities: No Clubbing, Cyanosis, - - left ankle and calf edema, wound on calf posteriorly at 5 cm covered with eschar Neurological: NL Muscle Strength and Tone - Assessment Assessment: 88yo with mild dementia, end stage HF and L leg cellulitis - Plan Consult Plan (MU): Palliative Plan: Long discussion with daughter and son in law about goals of care. They noted that her EF has been at 10-15% for several years , doesn't need O2. Pt's just 02/27/2019 in a fdc on [address]. Pt was living independently with 4 hrs x6 days a week of aide help. Daughter Vivi wants to have pt stay in [place] and can provide 24/7 care. Also trying to establish PCP and cardiology care in [place]. Would be willing to change provider in hospital if it's possible. Called to [facility] at family request and she is not taking new patients. Need to establish provider for home care. Want to take her home with [facility] PT wound check and with [facility]. Hospice information/brochure given but they felt she wasn't ready for hospice but are interested in the future. I emphasized to family her HF although stable in past may begin to cause more issues going forward especially with recent wound infection. Hospice eligibility end stage HF. KPS 50%, PPS 50% - Time On Unit Date of Evaluation: 03/26/19 Hospice Consult Time in: 13:30 Hospice Consult Time Out: 14:30 Hospice Consult Time Total: 60 > 50% of Time Spend In Counseling or Coordinating Care: Yes
[2019-03-26] MEDS: Enalapril TAB* 5 MG PO SCH (15:45)
[2019-03-26] MEDS: LORazepam TAB(*) 0.5 MG PO PRN (15:46)
[2019-03-27] MEDS: LORazepam TAB(*) 0.5 MG PO PRN ×2 (03:21→21:27)
[2019-03-27] MEDS: Acetaminophen TAB* 325 MG PO PRN (03:30)
[2019-03-27 06:14] LABS: Calcium 8.1 mg/dL (8.6-10.3); EGFR African American 39.6 (>60); EGFR Non-African American 32.7 (>60); Magnesium 2.3 mg/dL (1.9-2.7); Potassium 4.3 mmol/L (3.5-5.0)
[2019-03-27 06:29] LABS: TSH (Thyroid Stimulating Horm) 0.29 mcIU/mL (0.34-5.60)
[2019-03-27] MEDS: Amiodarone TAB* 200 MG PO SCH (07:38)
[2019-03-27] MEDS: Torsemide TAB* 20 MG PO SCH (07:38)
[2019-03-27] MEDS: Aspirin EC TAB* 81 MG TAB.EC PO SCH (07:38)
[2019-03-27] MEDS: Lactobacillus Acidophilus* 1 TAB PO SCH (07:38)
[2019-03-27] MEDS: Pramipexole TAB* 0.5 MG PO SCH ×3 (07:39→21:26)
[2019-03-27] MEDS: Folic Acid TAB* 1 MG PO SCH (07:39)
[2019-03-27] MEDS: Famotidine TAB* 20 MG PO SCH ×2 (07:39→21:26)
[2019-03-27] MEDS: Atorvastatin* 40 MG TAB PO SCH (07:39)
[2019-03-27] MEDS: Enalapril TAB* 5 MG PO SCH (07:39)
[2019-03-27] MEDS: cefTRIAXone(*) 1 GM in NS 0.9% 50 ML* 50 ML IVPB SCH (07:43)
[2019-03-27] MEDS: Rivaroxaban TAB(*) 15 MG PO SCH ×2 (07:48→16:08)
[2019-03-27] MEDS: Albuterol/Ipratropium NEB.SOL* Albuterol 2.5 MG/Ipratropium 0.5 MG 3 ML INH PRN (13:37)
[2019-03-27] MEDS ORDERED: Digoxin IV* 0.5 MG/2 ML AMP (0.25 MG/ML) IV SLOW PU ONE (15:03)
[2019-03-27] MEDS ORDERED: Furosemide IV* 10 MG/ML 10 ML VIAL (100 MG) IV ONE (15:03)
[2019-03-27] MEDS ORDERED: Metolazone TAB* 5 MG PO ONE (15:05)
--- NOTE | 2019-03-27 15:05 | PN ---
Subjective Interval History: Admission Date: 03/22/19 Consult date 03/26/2019 Service Hospitalist PRIMARY CARE PROVIDER: Dr. Rodney. OUTPATIENT SNACK BAR COOK: Dr. Parson. CHIEF COMPLAINT: Edema, fevers HISTORY OF PRESENT ILLNESS: Sarah Atkins is an 88-year-old woman with a history as below. She was admitted with a leg wound, worsening edema and shortness of breath. She was admitted and treated for cellulitis. At the time of my examination she is sitting in bed tachypneic in obvious decompensated HF. She has no chest pain. Her BP has been low. There is no family present. She is listed as DNR Pmhx: systolic CHF dementia status post porcine valve atrial fibrillation. PAST SURGICAL HISTORY: It is unclear if she has had surgeries, but she has had issues with right rotator cuff, back and hand osteoarthritis. ALLERGIES: No known drug allergies. FAMILY HISTORY: mother of dementia at age 86 father of heart disease and phlebitis at age 88. SOCIAL HISTORY: The patient is a never smoker. No significant alcohol or drug use. 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 Notably, her just a few weeks ago. Medications Active Medications: Acetaminophen (Tylenol Tab*) 650 mg PO Q6H PRN PRN Reason: PAIN - MILD Last Admin: 03/27/19 03:30 Dose: 650 mg Albuterol/Ipratropium (Duoneb (Albuterol 2.5 Mg/Ipratropium 0.5 Mg)) 1 neb INH [id number] AWAKE PRN PRN Reason: SOB/WHEEZING Last Admin: 03/27/19 13:37 Dose: 1 neb Amiodarone HCl (Cordarone Tab*) 100 mg PO DAILY [facility] Last Admin: 03/27/19 07:38 Dose: 100 mg Aspirin (Aspirin Ec Tab*) 81 mg PO DAILY [facility] Last Admin: 03/27/19 07:38 Dose: 81 mg Atorvastatin Calcium (Lipitor*) 40 mg PO DAILY [facility] Last Admin: 03/27/19 07:39 Dose: 40 mg Enalapril Maleate (Vasotec Tab*) 2.5 mg PO DAILY [facility] Last Admin: 03/27/19 07:39 Dose: 2.5 mg Famotidine (Pepcid Tab*) 10 mg PO BID [facility] Last Admin: 03/27/19 07:39 Dose: 10 mg Folic Acid (Folvite Tab*) 1 mg PO DAILY [facility] Last Admin: 03/27/19 07:39 Dose: 1 mg Heparin Sodium (Porcine) (Heparin Flush Picc/Ml/Cvc(*)) 1 - 3 ml FLUSH 0600, 1800 [facility]; Protocol Last Admin: 03/27/19 04:54 Dose: 3 ml Ceftriaxone Sodium 1 gm/ (Sodium Chloride) 50 mls @ 100 mls/hr IVPB Q24H [facility] Last Admin: 03/27/19 07:43 Dose: 100 mls/hr Lactobacillus Rhamnosus (Lactobacillus Acidophilus*) 1 tab PO DAILY [facility] Last Admin: 03/27/19 07:38 Dose: 1 tab Lorazepam (Ativan Tab(*)) 0.5 mg PO Q4H PRN PRN Reason: ANXIETY Last Admin: 03/27/19 03:21 Dose: 0.5 mg Pramipexole Dihydrochloride (Mirapex Tab*) 1 mg PO TID [facility] Last Admin: 03/27/19 13:09 Dose: 1 mg Rivaroxaban (Xarelto(*)) 15 mg PO DAILY [facility] Last Admin: 03/27/19 07:48 Dose: Not Given Torsemide (Demadex*) 20 mg PO DAILY [facility] Last Admin: 03/27/19 07:38 Dose: 20 mg Objective Vital Signs: Temp Pulse Resp BP Pulse Ox 97.7 F 75 28 80/46 100 03/27/19 11:56 03/27/19 11:56 03/27/19 13:42 03/27/19 11:56 03/27/19 11:56 Oxygen Devices in Use Now: None Appearance: acutely ill appearing, able to speak in short sentence Ears/Nose/Mouth/Throat: Clear Oropharnyx Neck: Trachea Midline, - - uncertain jvp Respiratory: - - increased work of breathing with tachypnea, b/l rales Abdominal: NL Sounds; No Tenderness; No Distention Extremities: - - warm, 2+ diffuse edema, legs wrapped Skin: No Nodules or Sclerosis Neurological: - - awake and alert Laboratory Results: 03/25/19 06:25 03/27/19 05:00 INR (Anticoag Therapy) 2.37 (0.82-1.09) H 03/21/19 21:04 APTT 36.8 seconds (26.0-38.0) 03/21/19 21:04 Total Bilirubin 1.80 mg/dL (0.2-1.0) H 03/21/19 21:04 AST 20 U/L (13-39) 03/21/19 21:04 ALT 18 U/L (7-52) 03/21/19 21:04 Alkaline Phosphatase 132 U/L (34-104) H 03/21/19 21:04 B-Natriuretic Peptide > 1300 pg/mL (<=100) H 03/21/19 21:04 Total Protein 6.3 g/dL (6.4-8.9) L 03/21/19 21:04 Albumin 3.9 g/dL (3.2-5.2) 03/21/19 21:04 Globulin 2.4 g/dL (2-4) 03/21/19 21:04 Albumin/Globulin Ratio 1.6 (1-3) 03/21/19 21:04 TSH 0.29 mcIU/mL (0.34-5.60) L 03/27/19 05:00 Diagnostic Imaging: Transthoracic Echocardiogram Study Date: 03/25/2019 Summary: - Left ventricle: The cavity size is severely dilated. Wall thickness is mildly increased. Systolic function is severely reduced. The estimated ejection fraction is 10-15%. Diffuse hypokinesis with regional variations. - Right ventricle: The cavity size is mildly dilated. Systolic function is moderately reduced. - Left atrium: The atrium is severely dilated. - Mitral valve: There is a bioprosthesis. There is no evidence of stenosis. The peak E-wave velocity is 1.86 m/sec. The pressure half-time is 97 ms. The mean diastolic gradient is 7.0 mm Hg. - Tricuspid valve: There is moderate regurgitation. - Pulmonary arteries: Systolic pressure is severely increased. Recommendations: None prior for comparison at time of interpretation. 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 Acute on chronic low output systolic CHF - Likely secondary to #6 2. MV replacement 3. Pulmonary HTN - Likely group II 4. Afib 5. BiV-ICD 6. Sepsis from traumatic left lower extremity wound 7. Renal dysfunction - Uncertain baseline - Digoxin 500 mcg x 1 now (ordered) - Continue torsemide 20 mg po daily - 80 mg IV lasix x 1 now (ordered) - Follow weights, I/O - continue amiodarone - BMP, Mg, TSH tomorrow (ordered) - AceI and BB held - Continue xarelto 15 mg po daily - Will have holding parameters of SBP 80 mmHg for all meds - Obtain prior cardiology records - Consider Palliative medicine consult - Discussed with Dr. Prather Thank you for allowing me to participate in the cardiovascular care of this patient. Please do not hesitate to contact me with questions or concerns.
--- NOTE | 2019-03-27 15:09 | PN ---
Subjective Interval History: f/u adhf - prior records reviewed - appears tachypneic and dyspneic - remains volume overloaded Medications Active Medications: Acetaminophen (Tylenol Tab*) 650 mg PO Q6H PRN PRN Reason: PAIN - MILD Last Admin: 03/27/19 03:30 Dose: 650 mg Albuterol/Ipratropium (Duoneb (Albuterol 2.5 Mg/Ipratropium 0.5 Mg)) 1 neb INH [id number] AWAKE PRN PRN Reason: SOB/WHEEZING Last Admin: 03/27/19 13:37 Dose: 1 neb Amiodarone HCl (Cordarone Tab*) 100 mg PO DAILY [facility] Last Admin: 03/27/19 07:38 Dose: 100 mg Aspirin (Aspirin Ec Tab*) 81 mg PO DAILY [facility] Last Admin: 03/27/19 07:38 Dose: 81 mg Atorvastatin Calcium (Lipitor*) 40 mg PO DAILY [facility] Last Admin: 03/27/19 07:39 Dose: 40 mg Enalapril Maleate (Vasotec Tab*) 2.5 mg PO DAILY [facility] Last Admin: 03/27/19 07:39 Dose: 2.5 mg Famotidine (Pepcid Tab*) 10 mg PO BID [facility] Last Admin: 03/27/19 07:39 Dose: 10 mg Folic Acid (Folvite Tab*) 1 mg PO DAILY [facility] Last Admin: 03/27/19 07:39 Dose: 1 mg Heparin Sodium (Porcine) (Heparin Flush Picc/Ml/Cvc(*)) 1 - 3 ml FLUSH 0600, 1800 [facility]; Protocol Last Admin: 03/27/19 04:54 Dose: 3 ml Ceftriaxone Sodium 1 gm/ (Sodium Chloride) 50 mls @ 100 mls/hr IVPB Q24H [facility] Last Admin: 03/27/19 07:43 Dose: 100 mls/hr Lactobacillus Rhamnosus (Lactobacillus Acidophilus*) 1 tab PO DAILY [facility] Last Admin: 03/27/19 07:38 Dose: 1 tab Lorazepam (Ativan Tab(*)) 0.5 mg PO Q4H PRN PRN Reason: ANXIETY Last Admin: 03/27/19 03:21 Dose: 0.5 mg Metolazone (Zaroxolyn Tab*) 5 mg PO ONCE ONE Stop: 02/01/20 15:06 Pramipexole Dihydrochloride (Mirapex Tab*) 1 mg PO TID [facility] Last Admin: 03/27/19 13:09 Dose: 1 mg Rivaroxaban (Xarelto(*)) 15 mg PO DAILY [facility] Last Admin: 03/27/19 07:48 Dose: Not Given Torsemide (Demadex*) 20 mg PO DAILY [facility] Last Admin: 03/27/19 07:38 Dose: 20 mg Objective Vital Signs: Temp Pulse Resp BP Pulse Ox 97.7 F 75 28 80/46 100 03/27/19 11:56 03/27/19 11:56 03/27/19 13:42 03/27/19 11:56 03/27/19 11:56 Oxygen Devices in Use Now: None Appearance: frail, ill appearing Ears/Nose/Mouth/Throat: Clear Oropharnyx Neck: Trachea Midline, - - + jvd Respiratory: - - increased work of breathing with tachypnea, b/l rales Cardiovascular: - - irregularly irgular, + prominent pmi Abdominal: NL Sounds; No Tenderness; No Distention Extremities: - - warm, 2+ diffuse edema, legs wrapped Skin: No Nodules or Sclerosis Neurological: - - awake and alert Laboratory Results: 03/25/19 06:25 03/27/19 05:00 INR (Anticoag Therapy) 2.37 (0.82-1.09) H 03/21/19 21:04 APTT 36.8 seconds (26.0-38.0) 03/21/19 21:04 Total Bilirubin 1.80 mg/dL (0.2-1.0) H 03/21/19 21:04 AST 20 U/L (13-39) 03/21/19 21:04 ALT 18 U/L (7-52) 03/21/19 21:04 Alkaline Phosphatase 132 U/L (34-104) H 03/21/19 21:04 B-Natriuretic Peptide > 1300 pg/mL (<=100) H 03/21/19 21:04 Total Protein 6.3 g/dL (6.4-8.9) L 03/21/19 21:04 Albumin 3.9 g/dL (3.2-5.2) 03/21/19 21:04 Globulin 2.4 g/dL (2-4) 03/21/19 21:04 Albumin/Globulin Ratio 1.6 (1-3) 03/21/19 21:04 TSH 0.29 mcIU/mL (0.34-5.60) L 03/27/19 05:00 Diagnostic Imaging: Transthoracic Echocardiogram Study Date: 03/25/2019 Summary: - Left ventricle: The cavity size is severely dilated. Wall thickness is mildly increased. Systolic function is severely reduced. The estimated ejection fraction is 10-15%. Diffuse hypokinesis with regional variations. - Right ventricle: The cavity size is mildly dilated. Systolic function is moderately reduced. - Left atrium: The atrium is severely dilated. - Mitral valve: There is a bioprosthesis. There is no evidence of stenosis. The peak E-wave velocity is 1.86 m/sec. The pressure half-time is 97 ms. The mean diastolic gradient is 7.0 mm Hg. - Tricuspid valve: There is moderate regurgitation. - Pulmonary arteries: Systolic pressure is severely increased. Recommendations: None prior for comparison at time of interpretation. 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 Acute on chronic low output systolic CHF - Likely secondary to #6 - Ischemic CM s/p CABG 2. MV replacement and TV repair 3. Pulmonary HTN - Likely group II 4. Afib 5. BiV-ICD 6. Sepsis from traumatic left lower extremity wound 7. Renal dysfunction - Uncertain baseline - Continue torsemide 20 mg po daily - 5 mg or metolazone and 80 mg IV lasix x 1 now (ordered) - Given another 250 mcg IV digoxin x 1 now (ordered) - Follow weights, I/O - continue amiodarone - continue enalapril 2.5 mg po daily for afterload reduction - Hold BB - Continue xarelto 15 mg po daily - Will have holding parameters of SBP 80 mmHg for all meds - Prognosis guarded Thank you for allowing me to participate in the cardiovascular care of this patient. Please do not hesitate to contact me with questions or concerns.
[2019-03-27] MEDS ORDERED: Benzonatate CAP* 100 MG PO PRN (15:36)
--- NOTE | 2019-03-27 15:41 | PN ---
Subjective Date of Service: 03/27/19 Interval History: Pt is feeling poorly. She is coughing and occasionally bringing up sputum. She feels SOB sitting up. She also feels dizzy sitting up. Family History: Unchanged from Admission Social History: Unchanged from Admission Past Medical History: Unchanged from Admission Objective Active Medications: Acetaminophen (Tylenol Tab*) 650 mg PO Q6H PRN PRN Reason: PAIN - MILD Last Admin: 03/27/19 03:30 Dose: 650 mg Albuterol/Ipratropium (Duoneb (Albuterol 2.5 Mg/Ipratropium 0.5 Mg)) 1 neb INH [id number] AWAKE PRN PRN Reason: SOB/WHEEZING Last Admin: 03/27/19 13:37 Dose: 1 neb Amiodarone HCl (Cordarone Tab*) 100 mg PO DAILY [facility] Last Admin: 03/27/19 07:38 Dose: 100 mg Aspirin (Aspirin Ec Tab*) 81 mg PO DAILY [facility] Last Admin: 03/27/19 07:38 Dose: 81 mg Atorvastatin Calcium (Lipitor*) 40 mg PO DAILY [facility] Last Admin: 03/27/19 07:39 Dose: 40 mg Enalapril Maleate (Vasotec Tab*) 2.5 mg PO DAILY [facility] Last Admin: 03/27/19 07:39 Dose: 2.5 mg Famotidine (Pepcid Tab*) 10 mg PO BID [facility] Last Admin: 03/27/19 07:39 Dose: 10 mg Folic Acid (Folvite Tab*) 1 mg PO DAILY [facility] Last Admin: 03/27/19 07:39 Dose: 1 mg Heparin Sodium (Porcine) (Heparin Flush Picc/Ml/Cvc(*)) 1 - 3 ml FLUSH 0600, 1800 [facility]; Protocol Last Admin: 03/27/19 04:54 Dose: 3 ml Ceftriaxone Sodium 1 gm/ (Sodium Chloride) 50 mls @ 100 mls/hr IVPB Q24H [facility] Last Admin: 03/27/19 07:43 Dose: 100 mls/hr Lactobacillus Rhamnosus (Lactobacillus Acidophilus*) 1 tab PO DAILY [facility] Last Admin: 03/27/19 07:38 Dose: 1 tab Lorazepam (Ativan Tab(*)) 0.5 mg PO Q4H PRN PRN Reason: ANXIETY Last Admin: 03/27/19 03:21 Dose: 0.5 mg Pramipexole Dihydrochloride (Mirapex Tab*) 1 mg PO TID [facility] Last Admin: 03/27/19 13:09 Dose: 1 mg Rivaroxaban (Xarelto(*)) 15 mg PO DAILY [facility] Last Admin: 03/27/19 07:48 Dose: Not Given Torsemide (Demadex*) 20 mg PO DAILY [facility] Last Admin: 03/27/19 07:38 Dose: 20 mg Vital Signs - 8 hr 03/27/19 03/27/19 03/27/19 08:00 11:56 13:42 Temperature 97.7 F Pulse Rate 75 Respiratory 18 20 28 Rate Blood Pressure 80/46 (mmHg) O2 Sat by Pulse 99 100 Oximetry 03/27/19 15:20 Temperature Pulse Rate 75 Respiratory Rate Blood Pressure (mmHg) O2 Sat by Pulse Oximetry Oxygen Devices in Use Now: None Appearance: Elderly ill appearing female sitting up on the edge of the bed, NAD Eyes: No Scleral Icterus Ears/Nose/Mouth/Throat: Mucous Membranes Moist Respiratory: Symmetrical Chest Expansion and Respiratory Effort, - - tight breath sounds throughout, upper airway forced expiratory wheezes, no crackles heard Cardiovascular: NL Sounds; No Murmurs; No JVD, RRR, - - marked anasarca to waist Abdominal: NL Sounds; No Tenderness; No Distention Extremities: No Clubbing, Cyanosis Skin: No Nodules or Sclerosis, - - numerous deep purple bruises noted to arms, upper back Neurological: - - alert, oriented to situation Result Diagrams: 03/25/19 06:25 03/27/19 05:00 Additional Lab and Data: Above labs were pulled into the note, when the note was edited prior to signing. See below for labs from the day of consultation. Laboratory Tests 03/21/19 03/23/19 03/23/19 21:04 04:28 04:28 WBC 18.3 H Hgb 11.8 L Hct 35 Plt Count 144 L Sodium 132 L Potassium 4.4 Chloride 106 Carbon Dioxide 19 L BUN 53 H Creatinine 1.63 H Glucose 156 H C-Reactive Protein 43.27 H Total Protein 6.3 L Albumin 3.9 Microbiology and Other Data: Diagnostic Imagin. Exam Date: 03/23/19 0152 - VL ANK/BRACHIAL INDICES Right: Value (SBP) Index Brachial: 95 Posterior tibialis: Not acquired Dorsalis pedis: Noncompressible Left: Value (SBP) Index Brachial: 95 Posterior tibialis: Not acquired Dorsalis pedis: Not acquired Doppler waveforms (acquired at rest): In the interrogated lower extremity arteries, Doppler waveforms are monophasic measured at the bilateral dorsalis pedis arteries. Volume pulse recordings (acquired at rest): Volume pulse recordings, measured at the bilateral ankles, are symmetric. IMPRESSION: 1. Noncompressibility of the right dorsalis pedis artery indicates calcified atherosclerosis preventing compression of the artery and therefore preventing acquisition of unreliable SUSHILA. 2. Arterial waveforms are monophasic at the bilateral dorsalis pedis artery indicating some degree of proximal arterial insufficiency. 3. Due to the pain the patient experienced, no further ABIs could be attempted at the right posterior tibial artery or the left pedal arteries. If there exists strong clinical suspicion for arterial insufficiency exacerbating the left lower extremity ulcers, clinical evaluation with a vascular specialist may be appropriate. 2. Exam Date: 03/22/19 0155 - CT EXTREMITY LOWER LEFT WO IMPRESSION: Edematous and or inflammatory changes involving the left lower leg. Assess/Plan/Problems-Billing Ms Atkins is an 88 yo F with h/o severe systolic CHF, PAF s/p pacer presents with septic shock secondary to cellulitis with her hospital course being complicated by acute on chronic systolic CHF exacerbation in the setting of marked hypotension. - Patient Problems (1) Septic shock Current Visit: Yes Status: Acute Code(s): A41.9 - SEPSIS, UNSPECIFIED ORGANISM; R65.21 - SEVERE SEPSIS WITH SEPTIC SHOCK SNOMED Code(s): 16921601 Comment: Septic shock is resolved. She however remains severly hypotensive. (2) Cellulitis Current Visit: Yes Status: Acute Code(s): L03.90 - CELLULITIS, UNSPECIFIED SNOMED Code(s): 549050475 Comment: Pt with probable cellulitis of L LE. She has completed 6 days of Abx therapy. Continue ceftriaxone for now. (3) Acute renal failure Current Visit: Yes Status: Acute Comment: Baseline is unclear but likely not normal given all of her comorbidities. Creatinine is now stable around 1.5. (4) CHF (congestive heart failure) Current Visit: Yes Status: Acute Code(s): I50.9 - HEART FAILURE, UNSPECIFIED SNOMED Code(s): 02922017 Comment: Pt with acute on chronic systolic CHF exacerbation. Her low BP is making diuresis very difficult. Dr. Patel saw the patient today and despite the hypotension ordered IV lasix 80mg and metolazone. While it is good that the patient and her daughter are accepting of PATH and VNS, she is not improving and I in fact think she needs hospice. Will try to discuss with pt and her daughter tomorrow. (5) Paroxysmal A-fib Current Visit: Yes Status: Acute Code(s): I48.0 - PAROXYSMAL ATRIAL FIBRILLATION SNOMED Code(s): 979942125 Comment: HR is paced. Continue amiodarone and xarelto. (6) DVT prophylaxis Current Visit: Yes Status: Acute Code(s): Z29.9 - ENCOUNTER FOR PROPHYLACTIC MEASURES, UNSPECIFIED SNOMED Code(s): 669484466 Comment: James (7) DNR (do not resuscitate) Current Visit: Yes Status: Acute Status and Disposition: inpatient
[2019-03-28 05:12] LABS: BUN/Creatinine Ratio 38.3 (8-20); Calcium 7.9 mg/dL (8.6-10.3); EGFR African American 38.4 (>60); EGFR Non-African American 31.7 (>60)
[2019-03-28 06:11] LABS: Free T4 1.46 ng/dL (0.61-1.12)
[2019-03-28] MEDS ORDERED: Torsemide TAB* 20 MG PO ONE (09:00)
[2019-03-28] MEDS: Pramipexole TAB* 0.5 MG PO SCH ×3 (10:20→21:06)
[2019-03-28] MEDS: Famotidine TAB* 20 MG PO SCH ×2 (10:20→21:06)
[2019-03-28] MEDS: Aspirin EC TAB* 81 MG TAB.EC PO SCH (10:20)
[2019-03-28] MEDS: Amiodarone TAB* 200 MG PO SCH (10:21)
[2019-03-28] MEDS: Torsemide TAB* 20 MG PO SCH (10:21)
[2019-03-28] MEDS: Folic Acid TAB* 1 MG PO SCH (10:21)
[2019-03-28] MEDS: Enalapril TAB* 5 MG PO SCH (10:21)
[2019-03-28] MEDS: Atorvastatin* 40 MG TAB PO SCH (10:21)
[2019-03-28] MEDS: Lactobacillus Acidophilus* 1 TAB PO SCH (10:21)
[2019-03-28] MEDS: Rivaroxaban TAB(*) 15 MG PO SCH (10:21)
[2019-03-28] MEDS: cefTRIAXone(*) 1 GM in NS 0.9% 50 ML* 50 ML IVPB SCH (10:22)
--- NOTE | 2019-03-28 10:33 | PN ---
Subjective Date of Service: 03/28/19 Interval History: f/u chf inadequate diuresis volume overloaded patient feels ok and not on 02 Medications Active Medications: Acetaminophen (Tylenol Tab*) 650 mg PO Q6H PRN PRN Reason: PAIN - MILD Last Admin: 03/27/19 03:30 Dose: 650 mg Albuterol/Ipratropium (Duoneb (Albuterol 2.5 Mg/Ipratropium 0.5 Mg)) 1 neb INH [id number] AWAKE PRN PRN Reason: SOB/WHEEZING Last Admin: 03/27/19 13:37 Dose: 1 neb Amiodarone HCl (Cordarone Tab*) 100 mg PO DAILY [facility] Last Admin: 03/28/19 10:21 Dose: 100 mg Aspirin (Aspirin Ec Tab*) 81 mg PO DAILY [facility] Last Admin: 03/28/19 10:20 Dose: 81 mg Atorvastatin Calcium (Lipitor*) 40 mg PO DAILY [facility] Last Admin: 03/28/19 10:21 Dose: 40 mg Benzonatate (Tessalon Cap*) 100 mg PO TID PRN PRN Reason: cough Last Admin: 03/27/19 16:08 Dose: 100 mg Digoxin (Lanoxin Tab*) 0.125 mg PO Q48H [facility] Enalapril Maleate (Vasotec Tab*) 2.5 mg PO DAILY [facility] Last Admin: 03/28/19 10:21 Dose: 2.5 mg Famotidine (Pepcid Tab*) 10 mg PO BID [facility] Last Admin: 03/28/19 10:20 Dose: 10 mg Folic Acid (Folvite Tab*) 1 mg PO DAILY [facility] Last Admin: 03/28/19 10:21 Dose: 1 mg Heparin Sodium (Porcine) (Heparin Flush Picc/Ml/Cvc(*)) 1 - 3 ml FLUSH 0600, 1800 [facility]; Protocol Last Admin: 03/28/19 04:53 Dose: 3 ml Ceftriaxone Sodium 1 gm/ (Sodium Chloride) 50 mls @ 100 mls/hr IVPB Q24H [facility] Last Admin: 03/28/19 10:22 Dose: 100 mls/hr Lactobacillus Rhamnosus (Lactobacillus Acidophilus*) 1 tab PO DAILY [facility] Last Admin: 03/28/19 10:21 Dose: 1 tab Lorazepam (Ativan Tab(*)) 0.5 mg PO Q4H PRN PRN Reason: ANXIETY Last Admin: 03/27/19 21:27 Dose: 0.5 mg Pramipexole Dihydrochloride (Mirapex Tab*) 1 mg PO TID [facility] Last Admin: 03/28/19 10:20 Dose: 1 mg Rivaroxaban (Xarelto(*)) 15 mg PO DAILY [facility] Last Admin: 03/28/19 10:21 Dose: 15 mg Objective Vital Signs: Temp Pulse Resp BP Pulse Ox 97.5 F 78 18 104/54 99 03/28/19 07:24 03/28/19 07:24 03/28/19 07:44 03/28/19 10:12 03/28/19 07:24 Oxygen Devices in Use Now: None Appearance: frail, ill appearing Ears/Nose/Mouth/Throat: Clear Oropharnyx Neck: Trachea Midline, - - + jvd Respiratory: - - increased work of breathing with tachypnea, b/l rales Cardiovascular: - - irregularly irgular, + prominent pmi Abdominal: NL Sounds; No Tenderness; No Distention Extremities: - - warm, 2+ diffuse edema, legs wrapped Skin: No Nodules or Sclerosis Neurological: - - awake and alert Laboratory Results: 03/25/19 06:25 03/28/19 04:42 INR (Anticoag Therapy) 2.37 (0.82-1.09) H 03/21/19 21:04 APTT 36.8 seconds (26.0-38.0) 03/21/19 21:04 Total Bilirubin 1.80 mg/dL (0.2-1.0) H 03/21/19 21:04 AST 20 U/L (13-39) 03/21/19 21:04 ALT 18 U/L (7-52) 03/21/19 21:04 Alkaline Phosphatase 132 U/L (34-104) H 03/21/19 21:04 B-Natriuretic Peptide > 1300 pg/mL (<=100) H 03/21/19 21:04 Total Protein 6.3 g/dL (6.4-8.9) L 03/21/19 21:04 Albumin 3.9 g/dL (3.2-5.2) 03/21/19 21:04 Globulin 2.4 g/dL (2-4) 03/21/19 21:04 Albumin/Globulin Ratio 1.6 (1-3) 03/21/19 21:04 TSH 0.29 mcIU/mL (0.34-5.60) L 03/27/19 05:00 Diagnostic Imaging: Transthoracic Echocardiogram Study Date: 03/25/2019 Summary: - Left ventricle: The cavity size is severely dilated. Wall thickness is mildly increased. Systolic function is severely reduced. The estimated ejection fraction is 10-15%. Diffuse hypokinesis with regional variations. - Right ventricle: The cavity size is mildly dilated. Systolic function is moderately reduced. - Left atrium: The atrium is severely dilated. - Mitral valve: There is a bioprosthesis. There is no evidence of stenosis. The peak E-wave velocity is 1.86 m/sec. The pressure half-time is 97 ms. The mean diastolic gradient is 7.0 mm Hg. - Tricuspid valve: There is moderate regurgitation. - Pulmonary arteries: Systolic pressure is severely increased. Recommendations: None prior for comparison at time of interpretation. No operative report available for review, cannot exclude a tricuspid valve annuloplasty 03/21/19 CHEST AP/PORT Reviewed: Appears sternotomy, MV replacement, BiV-ICD, no effusions Assessment/Plan 1. Acute on chronic low output systolic CHF - Likely secondary to #6 - Ischemic CM s/p CABG - Remains decompensated with volume overload 2. MV replacement and TV repair 3. Pulmonary HTN - Likely group II 4. Afib 5. BiV-ICD 6. Sepsis from traumatic left lower extremity wound 7. Renal dysfunction - Uncertain baseline 8. 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 Please do not hesitate to contact me with questions or concerns.
[2019-03-28] MEDS: LORazepam TAB(*) 0.5 MG PO PRN ×2 (10:40→21:05)
[2019-03-28] MEDS: Albuterol/Ipratropium NEB.SOL* Albuterol 2.5 MG/Ipratropium 0.5 MG 3 ML INH PRN (12:50)
--- NOTE | 2019-03-28 15:32 | PN ---
Subjective Date of Service: 03/28/19 Interval History: Pt is feeling slightly better today. She denies any SOB at this time. Her legs remain swollen and the left leg is tender to touch. Objective Active Medications: Acetaminophen (Tylenol Tab*) 650 mg PO Q6H PRN PRN Reason: PAIN - MILD Last Admin: 03/27/19 03:30 Dose: 650 mg Albuterol/Ipratropium (Duoneb (Albuterol 2.5 Mg/Ipratropium 0.5 Mg)) 1 neb INH [id number] AWAKE PRN PRN Reason: SOB/WHEEZING Last Admin: 03/28/19 12:50 Dose: 1 neb Amiodarone HCl (Cordarone Tab*) 100 mg PO DAILY [facility] Last Admin: 03/28/19 10:21 Dose: 100 mg Aspirin (Aspirin Ec Tab*) 81 mg PO DAILY [facility] Last Admin: 03/28/19 10:20 Dose: 81 mg Atorvastatin Calcium (Lipitor*) 40 mg PO DAILY [facility] Last Admin: 03/28/19 10:21 Dose: 40 mg Benzonatate (Tessalon Cap*) 100 mg PO TID PRN PRN Reason: cough Last Admin: 03/27/19 16:08 Dose: 100 mg Digoxin (Lanoxin Tab*) 0.125 mg PO Q48H [facility] Enalapril Maleate (Vasotec Tab*) 2.5 mg PO DAILY [facility] Last Admin: 03/28/19 10:21 Dose: 2.5 mg Famotidine (Pepcid Tab*) 10 mg PO BID [facility] Last Admin: 03/28/19 10:20 Dose: 10 mg Folic Acid (Folvite Tab*) 1 mg PO DAILY [facility] Last Admin: 03/28/19 10:21 Dose: 1 mg Heparin Sodium (Porcine) (Heparin Flush Picc/Ml/Cvc(*)) 1 - 3 ml FLUSH 0600, 1800 [facility]; Protocol Last Admin: 03/28/19 04:53 Dose: 3 ml Ceftriaxone Sodium 1 gm/ (Sodium Chloride) 50 mls @ 100 mls/hr IVPB Q24H [facility] Last Admin: 03/28/19 10:22 Dose: 100 mls/hr Lactobacillus Rhamnosus (Lactobacillus Acidophilus*) 1 tab PO DAILY [facility] Last Admin: 03/28/19 10:21 Dose: 1 tab Lorazepam (Ativan Tab(*)) 0.5 mg PO Q4H PRN PRN Reason: ANXIETY Last Admin: 03/28/19 10:40 Dose: 0.5 mg Pramipexole Dihydrochloride (Mirapex Tab*) 1 mg PO TID [facility] Last Admin: 03/28/19 14:42 Dose: 1 mg Rivaroxaban (Xarelto(*)) 15 mg PO DAILY [facility] Last Admin: 03/28/19 10:21 Dose: 15 mg Torsemide (Demadex*) 80 mg PO DAILY [facility] Vital Signs - 8 hr 03/28/19 03/28/19 03/28/19 07:44 10:12 10:40 Temperature Pulse Rate Respiratory 18 18 Rate Blood Pressure 104/54 (mmHg) O2 Sat by Pulse Oximetry 03/28/19 03/28/19 03/28/19 11:13 12:50 13:12 Temperature 97.4 F Pulse Rate 67 54 Respiratory 20 20 18 Rate Blood Pressure 102/63 (mmHg) O2 Sat by Pulse 93 94 Oximetry Oxygen Devices in Use Now: None Appearance: Elderly female sitting up in bed, sleeping, awakens to voice, NAD Eyes: No Scleral Icterus Ears/Nose/Mouth/Throat: Mucous Membranes Moist Respiratory: Symmetrical Chest Expansion and Respiratory Effort, Clear to Auscultation Cardiovascular: NL Sounds; No Murmurs; No JVD, RRR, - - 2-3+ LE edema bilaterally Abdominal: NL Sounds; No Tenderness; No Distention Extremities: No Clubbing, Cyanosis Skin: - - marked bruising on arms, shallow ulcerations noted to L LE, no surrounding erythema or warmth, L LE is weeping Neurological: - - lethargic but arousable Result Diagrams: 03/25/19 06:25 03/28/19 04:42 Additional Lab and Data: Above labs were pulled into the note, when the note was edited prior to signing. See below for labs from the day of consultation. Laboratory Tests 03/21/19 03/23/19 03/23/19 21:04 04:28 04:28 WBC 18.3 H Hgb 11.8 L Hct 35 Plt Count 144 L Sodium 132 L Potassium 4.4 Chloride 106 Carbon Dioxide 19 L BUN 53 H Creatinine 1.63 H Glucose 156 H C-Reactive Protein 43.27 H Total Protein 6.3 L Albumin 3.9 Microbiology and Other Data: Diagnostic Imagin. Exam Date: 03/23/19 0152 - VL ANK/BRACHIAL INDICES Right: Value (SBP) Index Brachial: 95 Posterior tibialis: Not acquired Dorsalis pedis: Noncompressible Left: Value (SBP) Index Brachial: 95 Posterior tibialis: Not acquired Dorsalis pedis: Not acquired Doppler waveforms (acquired at rest): In the interrogated lower extremity arteries, Doppler waveforms are monophasic measured at the bilateral dorsalis pedis arteries. Volume pulse recordings (acquired at rest): Volume pulse recordings, measured at the bilateral ankles, are symmetric. IMPRESSION: 1. Noncompressibility of the right dorsalis pedis artery indicates calcified atherosclerosis preventing compression of the artery and therefore preventing acquisition of unreliable SUSHILA. 2. Arterial waveforms are monophasic at the bilateral dorsalis pedis artery indicating some degree of proximal arterial insufficiency. 3. Due to the pain the patient experienced, no further ABIs could be attempted at the right posterior tibial artery or the left pedal arteries. If there exists strong clinical suspicion for arterial insufficiency exacerbating the left lower extremity ulcers, clinical evaluation with a vascular specialist may be appropriate. 2. Exam Date: 03/22/19154 - CT EXTREMITY LOWER LEFT WO IMPRESSION: Edematous and or inflammatory changes involving the left lower leg. Assess/Plan/Problems-Billing Ms Atkins is an 88 yo F with h/o severe systolic CHF, PAF s/p pacer presents with septic shock secondary to cellulitis with her hospital course being complicated by acute on chronic systolic CHF exacerbation in the setting of marked hypotension. - Patient Problems (1) Septic shock Current Visit: Yes Status: Acute Code(s): A41.9 - SEPSIS, UNSPECIFIED ORGANISM; R65.21 - SEVERE SEPSIS WITH SEPTIC SHOCK SNOMED Code(s): 93174326 Comment: Septic shock is resolved. She however remains at times severly hypotensive. (2) Cellulitis Current Visit: Yes Status: Acute Code(s): L03.90 - CELLULITIS, UNSPECIFIED SNOMED Code(s): 317968014 Comment: Pt with probable cellulitis of L LE. She has completed 7 days of Abx therapy. Stop ceftriaxone. (3) Acute renal failure Current Visit: Yes Status: Acute Comment: Baseline is unclear but likely not normal given all of her comorbidities. Creatinine is now stable around 1.5. Monitor with very aggressive attempts at diuresis. (4) CHF (congestive heart failure) Current Visit: Yes Status: Acute Code(s): I50.9 - HEART FAILURE, UNSPECIFIED SNOMED Code(s): 27210254 Comment: Pt with acute on chronic systolic CHF exacerbation. Her low BP is making diuresis very difficult. A long discussion was had between myself, Dr. Patel and the patient's daughter/son-in-law. It was explained that despite the aggressive attempts at diuresis and managment of her severe systolic CHF, the patient is failing to improve. It was recommended that hospice be pursued. The patient's family is agreeable and would like her to go home as soon as possible even if she not yet optimized as they feel emotionally she will do better at home and her goal currently is to be comfortable. I think the patient needs a same day discharg/sign-on for hospice. She will also need hospital bed and possibly commode. (5) Paroxysmal A-fib Current Visit: Yes Status: Acute Code(s): I48.0 - PAROXYSMAL ATRIAL FIBRILLATION SNOMED Code(s): 013671246 Comment: HR is paced. Continue amiodarone and xarelto. (6) DVT prophylaxis Current Visit: Yes Status: Acute Code(s): Z29.9 - ENCOUNTER FOR PROPHYLACTIC MEASURES, UNSPECIFIED SNOMED Code(s): 490289482 Comment: Xarelto (7) DNR (do not resuscitate) Current Visit: Yes Status: Acute Status and Disposition: inpatient
[2019-03-29] MEDS: Acetaminophen TAB* 325 MG PO PRN ×2 (00:28→22:00)
[2019-03-29] MEDS: Aspirin EC TAB* 81 MG TAB.EC PO SCH (08:22)
[2019-03-29] MEDS: Atorvastatin* 40 MG TAB PO SCH (08:25)
[2019-03-29] MEDS: Torsemide TAB* 20 MG PO SCH (08:25)
[2019-03-29] MEDS: Enalapril TAB* 5 MG PO SCH (08:25)
[2019-03-29] MEDS: Folic Acid TAB* 1 MG PO SCH (08:25)
[2019-03-29] MEDS: Famotidine TAB* 20 MG PO SCH ×2 (08:25→21:40)
[2019-03-29] MEDS: Amiodarone TAB* 200 MG PO SCH (08:25)
[2019-03-29] MEDS: Lactobacillus Acidophilus* 1 TAB PO SCH (08:25)
[2019-03-29] MEDS: Pramipexole TAB* 0.5 MG PO SCH ×3 (08:25→21:41)
[2019-03-29] MEDS: Rivaroxaban TAB(*) 15 MG PO SCH (08:26)
[2019-03-29] MEDS: cefTRIAXone(*) 1 GM in NS 0.9% 50 ML* 50 ML IVPB SCH (08:32)
[2019-03-29] MEDS ORDERED: Torsemide TAB* 20 MG PO SCH (09:00)
--- NOTE | 2019-03-29 10:44 | PN ---
Subjective Date of Service: 03/29/19 Interval History: f/u chf remains volume overloaded despite high dose diuretics appear mildy tachypneic with increased work of breathing prior to seeing me without complain of dyspnea wants to go home Medications Active Medications: Acetaminophen (Tylenol Tab*) 650 mg PO Q6H PRN PRN Reason: PAIN - MILD Last Admin: 03/29/19 00:28 Dose: 650 mg Albuterol/Ipratropium (Duoneb (Albuterol 2.5 Mg/Ipratropium 0.5 Mg)) 1 neb INH [id number] AWAKE PRN PRN Reason: SOB/WHEEZING Last Admin: 03/28/19 12:50 Dose: 1 neb Amiodarone HCl (Cordarone Tab*) 100 mg PO DAILY [facility] Last Admin: 03/29/19 08:25 Dose: 100 mg Aspirin (Aspirin Ec Tab*) 81 mg PO DAILY [facility] Last Admin: 03/29/19 08:22 Dose: 81 mg Atorvastatin Calcium (Lipitor*) 40 mg PO DAILY [facility] Last Admin: 03/29/19 08:25 Dose: 40 mg Benzonatate (Tessalon Cap*) 100 mg PO TID PRN PRN Reason: cough Last Admin: 03/27/19 16:08 Dose: 100 mg Digoxin (Lanoxin Tab*) 0.125 mg PO Q48H [facility] Enalapril Maleate (Vasotec Tab*) 2.5 mg PO DAILY [facility] Last Admin: 03/29/19 08:25 Dose: 2.5 mg Famotidine (Pepcid Tab*) 10 mg PO BID [facility] Last Admin: 03/29/19 08:25 Dose: 10 mg Folic Acid (Folvite Tab*) 1 mg PO DAILY [facility] Last Admin: 03/29/19 08:25 Dose: 1 mg Heparin Sodium (Porcine) (Heparin Flush Picc/Ml/Cvc(*)) 1 - 3 ml FLUSH 0600, 1800 [facility]; Protocol Last Admin: 03/29/19 05:33 Dose: 3 ml Ceftriaxone Sodium 1 gm/ (Sodium Chloride) 50 mls @ 100 mls/hr IVPB Q24H [facility] Last Admin: 03/29/19 08:32 Dose: 100 mls/hr Lactobacillus Rhamnosus (Lactobacillus Acidophilus*) 1 tab PO DAILY [facility] Last Admin: 03/29/19 08:25 Dose: 1 tab Lorazepam (Ativan Tab(*)) 0.5 mg PO Q4H PRN PRN Reason: ANXIETY Last Admin: 03/28/19 21:05 Dose: 0.5 mg Pramipexole Dihydrochloride (Mirapex Tab*) 1 mg PO TID [facility] Last Admin: 03/29/19 08:25 Dose: 1 mg Rivaroxaban (Xarelto(*)) 15 mg PO DAILY [facility] Last Admin: 03/29/19 08:26 Dose: 15 mg Torsemide (Demadex*) 100 mg PO DAILY [facility] Last Admin: 03/29/19 08:25 Dose: 100 mg Objective Vital Signs: Temp Pulse Resp BP Pulse Ox 97.4 F 76 16 98/38 98 03/29/19 08:00 03/29/19 08:00 03/29/19 08:00 03/29/19 08:00 03/29/19 08:00 Oxygen Devices in Use Now: None Appearance: frail, ill appearing Ears/Nose/Mouth/Throat: Clear Oropharnyx Neck: Trachea Midline, - - uncertain jvp Respiratory: - - increased work of breathing with tachypnea, b/l rales Cardiovascular: - - irregularly irgular, + prominent pmi Abdominal: NL Sounds; No Tenderness; No Distention Extremities: - - warm, 2+ diffuse edema, legs wrapped Skin: No Nodules or Sclerosis Neurological: - - awake and alert Laboratory Results: 03/25/19 06:25 03/28/19 04:42 INR (Anticoag Therapy) 2.37 (0.82-1.09) H 03/21/19 21:04 APTT 36.8 seconds (26.0-38.0) 03/21/19 21:04 Total Bilirubin 1.80 mg/dL (0.2-1.0) H 03/21/19 21:04 AST 20 U/L (13-39) 03/21/19 21:04 ALT 18 U/L (7-52) 03/21/19 21:04 Alkaline Phosphatase 132 U/L (34-104) H 03/21/19 21:04 B-Natriuretic Peptide > 1300 pg/mL (<=100) H 03/21/19 21:04 Total Protein 6.3 g/dL (6.4-8.9) L 03/21/19 21:04 Albumin 3.9 g/dL (3.2-5.2) 03/21/19 21:04 Globulin 2.4 g/dL (2-4) 03/21/19 21:04 Albumin/Globulin Ratio 1.6 (1-3) 03/21/19 21:04 TSH 0.29 mcIU/mL (0.34-5.60) L 03/27/19 05:00 Diagnostic Imaging: Transthoracic Echocardiogram Study Date: 03/25/2019 Summary: - Left ventricle: The cavity size is severely dilated. Wall thickness is mildly increased. Systolic function is severely reduced. The estimated ejection fraction is 10-15%. Diffuse hypokinesis with regional variations. - Right ventricle: The cavity size is mildly dilated. Systolic function is moderately reduced. - Left atrium: The atrium is severely dilated. - Mitral valve: There is a bioprosthesis. There is no evidence of stenosis. The peak E-wave velocity is 1.86 m/sec. The pressure half-time is 97 ms. The mean diastolic gradient is 7.0 mm Hg. - Tricuspid valve: There is moderate regurgitation. - Pulmonary arteries: Systolic pressure is severely increased. Recommendations: None prior for comparison at time of interpretation. No operative report available for review, cannot exclude a tricuspid valve annuloplasty 03/21/19 CHEST AP/PORT Reviewed: Appears sternotomy, MV replacement, BiV-ICD, no effusions Assessment/Plan 1. Acute on chronic low output very severe and dilated systolic CHF - Ischemic CM s/p CABG - Remains decompensated with volume overload 2. MV replacement and TV repair 3. Pulmonary HTN - Likely group II 4. Afib 5. BiV-ICD 6. Sepsis from traumatic left lower extremity wound 7. Renal dysfunction - Uncertain baseline 8. 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 Bragg and myself yesterday, plan for home hospice. Will sign off, please reconsult as needed. Thank you for allowing me to participate in the cardiovascular care of this patient. Please do not hesitate to contact me with questions or concerns.
[2019-03-29] MEDS: LORazepam TAB(*) 0.5 MG PO PRN ×2 (13:04→22:00)
--- NOTE | 2019-03-29 22:57 | PN ---
Subjective Date of Service: 03/29/19 Interval History: Appear short of breath sitting in the chair with noted increased work of breathing, though the patient denies shortness of breath. patient reports that she would like to go home. She denies chest pain. Denies abd pain n/v.d Denies fever or chills. Plan is home with hospice. Family History: Unchanged from Admission Social History: Unchanged from Admission Past Medical History: Unchanged from Admission Objective Active Medications: Acetaminophen (Tylenol Tab*) 650 mg PO Q6H PRN PRN Reason: PAIN - MILD Last Admin: 03/29/19 22:00 Dose: 650 mg Albuterol/Ipratropium (Duoneb (Albuterol 2.5 Mg/Ipratropium 0.5 Mg)) 1 neb INH [id number] AWAKE PRN PRN Reason: SOB/WHEEZING Last Admin: 03/28/19 12:50 Dose: 1 neb Amiodarone HCl (Cordarone Tab*) 100 mg PO DAILY [facility] Last Admin: 03/29/19 08:25 Dose: 100 mg Aspirin (Aspirin Ec Tab*) 81 mg PO DAILY [facility] Last Admin: 03/29/19 08:22 Dose: 81 mg Atorvastatin Calcium (Lipitor*) 40 mg PO DAILY [facility] Last Admin: 03/29/19 08:25 Dose: 40 mg Benzonatate (Tessalon Cap*) 100 mg PO TID PRN PRN Reason: cough Last Admin: 03/27/19 16:08 Dose: 100 mg Digoxin (Lanoxin Tab*) 0.125 mg PO Q48H [facility] Enalapril Maleate (Vasotec Tab*) 2.5 mg PO DAILY [facility] Last Admin: 03/29/19 08:25 Dose: 2.5 mg Famotidine (Pepcid Tab*) 10 mg PO BID [facility] Last Admin: 03/29/19 21:40 Dose: 10 mg Folic Acid (Folvite Tab*) 1 mg PO DAILY [facility] Last Admin: 03/29/19 08:25 Dose: 1 mg Heparin Sodium (Porcine) (Heparin Flush Picc/Ml/Cvc(*)) 1 - 3 ml FLUSH 0600, 1800 [facility]; Protocol Last Admin: 03/29/19 17:40 Dose: 3 ml Ceftriaxone Sodium 1 gm/ (Sodium Chloride) 50 mls @ 100 mls/hr IVPB Q24H [facility] Last Admin: 03/29/19 08:32 Dose: 100 mls/hr Lactobacillus Rhamnosus (Lactobacillus Acidophilus*) 1 tab PO DAILY [facility] Last Admin: 03/29/19 08:25 Dose: 1 tab Lorazepam (Ativan Tab(*)) 0.5 mg PO Q4H PRN PRN Reason: ANXIETY Last Admin: 03/29/19 22:00 Dose: 0.5 mg Pramipexole Dihydrochloride (Mirapex Tab*) 1 mg PO TID [facility] Last Admin: 03/29/19 21:41 Dose: 1 mg Rivaroxaban (Xarelto(*)) 15 mg PO DAILY [facility] Last Admin: 03/29/19 08:26 Dose: 15 mg Torsemide (Demadex*) 100 mg PO DAILY [facility] Last Admin: 03/29/19 08:25 Dose: 100 mg Vital Signs - 8 hr 03/29/19 03/29/19 03/29/19 16:00 16:40 19:08 Temperature 98.4 F 97.5 F Pulse Rate 75 75 Respiratory 22 20 16 Rate Blood Pressure 111/45 81/42 (mmHg) O2 Sat by Pulse 98 99 Oximetry 03/29/19 03/29/19 20:00 22:00 Temperature Pulse Rate Respiratory 20 18 Rate Blood Pressure (mmHg) O2 Sat by Pulse 93 Oximetry Oxygen Devices in Use Now: None Appearance: appears short of breath at rest, mild work of breathing noted. alert Eyes: No Scleral Icterus Ears/Nose/Mouth/Throat: Clear Oropharnyx, Mucous Membranes Moist Neck: NL Appearance and Movements; NL JVP Respiratory: Symmetrical Chest Expansion and Respiratory Effort, - - diminished t/o bilat with crackles at the bases Cardiovascular: NL Sounds; No Murmurs; No JVD, No Edema Abdominal: NL Sounds; No Tenderness; No Distention Extremities: No Edema, No Clubbing, Cyanosis Skin: No Rash or Ulcers Neurological: Alert and Oriented x 3 Nutrition: Taking PO's Result Diagrams: 03/25/19 06:25 03/28/19 04:42 Additional Lab and Data: Above labs were pulled into the note, when the note was edited prior to signing. See below for labs from the day of consultation. Laboratory Tests 03/21/19 03/23/19 03/23/19 21:04 04:28 04:28 WBC 18.3 H Hgb 11.8 L Hct 35 Plt Count 144 L Sodium 132 L Potassium 4.4 Chloride 106 Carbon Dioxide 19 L BUN 53 H Creatinine 1.63 H Glucose 156 H C-Reactive Protein 43.27 H Total Protein 6.3 L Albumin 3.9 Microbiology and Other Data: Diagnostic Imagin. Exam Date: 03/23/19 0152 - VL ANK/BRACHIAL INDICES Right: Value (SBP) Index Brachial: 95 Posterior tibialis: Not acquired Dorsalis pedis: Noncompressible Left: Value (SBP) Index Brachial: 95 Posterior tibialis: Not acquired Dorsalis pedis: Not acquired Doppler waveforms (acquired at rest): In the interrogated lower extremity arteries, Doppler waveforms are monophasic measured at the bilateral dorsalis pedis arteries. Volume pulse recordings (acquired at rest): Volume pulse recordings, measured at the bilateral ankles, are symmetric. IMPRESSION: 1. Noncompressibility of the right dorsalis pedis artery indicates calcified atherosclerosis preventing compression of the artery and therefore preventing acquisition of unreliable SUSHILA. 2. Arterial waveforms are monophasic at the bilateral dorsalis pedis artery indicating some degree of proximal arterial insufficiency. 3. Due to the pain the patient experienced, no further ABIs could be attempted at the right posterior tibial artery or the left pedal arteries. If there exists strong clinical suspicion for arterial insufficiency exacerbating the left lower extremity ulcers, clinical evaluation with a vascular specialist may be appropriate. 2. Exam Date: 03/22/19154 - CT EXTREMITY LOWER LEFT WO IMPRESSION: Edematous and or inflammatory changes involving the left lower leg. Assess/Plan/Problems-Billing Ms Atkins is an 88 yo F with h/o severe systolic CHF, PAF s/p pacer presents with septic shock secondary to cellulitis with her hospital course being complicated by acute on chronic systolic CHF exacerbation in the setting of marked hypotension. - Patient Problems (1) Septic shock Current Visit: Yes Status: Acute Code(s): A41.9 - SEPSIS, UNSPECIFIED ORGANISM; R65.21 - SEVERE SEPSIS WITH SEPTIC SHOCK SNOMED Code(s): 32227273 Comment: Septic shock is resolved. - noted tohave periods hypotension - new cardiac medications likely contributing as well as poor cardiac function (2) Acute renal failure Current Visit: Yes Status: Acute Comment: Baseline is unclear but likely not normal given all of her comorbidities. Creatinine stable around 1.5. Monitor with very aggressive attempts at diuresis. (3) CHF (congestive heart failure) Current Visit: Yes Status: Acute Code(s): I50.9 - HEART FAILURE, UNSPECIFIED SNOMED Code(s): 37031459 Comment: Pt with acute on chronic systolic CHF exacerbation. Her low BP is making diuresis very difficult. A long discussion was had between the patient's daughter/son-in-law between cardiology and medicine explaining patient minimal improvement despite aggressive attempts at diuresis and managment of her severe systolic CHF. It was recommended that hospice be pursued. The patient's family is agreeable - palliative care consulted the patient needs a same day discharg/sign-on for hospice. She will also need hospital bed and possibly commode. (4) Cellulitis Current Visit: Yes Status: Acute Code(s): L03.90 - CELLULITIS, UNSPECIFIED SNOMED Code(s): 563278679 Comment: Pt with probable cellulitis of L LE. She has completed 7 days of Abx therapy. Stop ceftriaxone. (5) Paroxysmal A-fib Current Visit: Yes Status: Acute Code(s): I48.0 - PAROXYSMAL ATRIAL FIBRILLATION SNOMED Code(s): 475308627 Comment: HR is paced. Continue amiodarone and xarelto. digoxin every other day (6) DVT prophylaxis Current Visit: Yes Status: Acute Code(s): Z29.9 - ENCOUNTER FOR PROPHYLACTIC MEASURES, UNSPECIFIED SNOMED Code(s): 389103046 Comment: Xarelto (7) DNR (do not resuscitate) Current Visit: Yes Status: Acute Status and Disposition: inpatient- home with hospice
[2019-03-30] MEDS: LORazepam TAB(*) 0.5 MG PO PRN ×3 (05:17→21:14)
[2019-03-30] MEDS: Pramipexole TAB* 0.5 MG PO SCH ×3 (09:45→22:17)
[2019-03-30] MEDS: Aspirin EC TAB* 81 MG TAB.EC PO SCH (09:45)
[2019-03-30] MEDS: Folic Acid TAB* 1 MG PO SCH (09:45)
[2019-03-30] MEDS: Lactobacillus Acidophilus* 1 TAB PO SCH (09:45)
[2019-03-30] MEDS: Atorvastatin* 40 MG TAB PO SCH (09:45)
[2019-03-30] MEDS: Torsemide TAB* 20 MG PO SCH (09:45)
[2019-03-30] MEDS: Enalapril TAB* 5 MG PO SCH (09:46)
[2019-03-30] MEDS: Famotidine TAB* 20 MG PO SCH ×2 (09:46→21:12)
[2019-03-30] MEDS: Rivaroxaban TAB(*) 15 MG PO SCH (09:46)
[2019-03-30] MEDS: Amiodarone TAB* 200 MG PO SCH (09:47)
[2019-03-30] MEDS: cefTRIAXone(*) 1 GM in NS 0.9% 50 ML* 50 ML IVPB SCH (09:59)
[2019-03-30] MEDS: Acetaminophen TAB* 325 MG PO PRN ×2 (10:35→21:13)
[2019-03-30] MEDS ORDERED: Digoxin TAB* 0.125 MG PO SCH (17:00)
--- NOTE | 2019-03-30 18:41 | PN ---
Subjective Date of Service: 03/30/19 Interval History: patient reports that she is feeling tired today. Denies chest pain or shortness of breath. Denies abd pain n/v/d. Denies fever or chills. Family History: Unchanged from Admission Social History: Unchanged from Admission Past Medical History: Unchanged from Admission Objective Active Medications: Acetaminophen (Tylenol Tab*) 650 mg PO Q6H PRN PRN Reason: PAIN - MILD Last Admin: 03/30/19 10:35 Dose: 650 mg Albuterol/Ipratropium (Duoneb (Albuterol 2.5 Mg/Ipratropium 0.5 Mg)) 1 neb INH [id number] AWAKE PRN PRN Reason: SOB/WHEEZING Last Admin: 03/28/19 12:50 Dose: 1 neb Amiodarone HCl (Cordarone Tab*) 100 mg PO DAILY [facility] Last Admin: 03/30/19 09:47 Dose: 100 mg Aspirin (Aspirin Ec Tab*) 81 mg PO DAILY [facility] Last Admin: 03/30/19 09:45 Dose: 81 mg Atorvastatin Calcium (Lipitor*) 40 mg PO DAILY [facility] Last Admin: 03/30/19 09:45 Dose: 40 mg Benzonatate (Tessalon Cap*) 100 mg PO TID PRN PRN Reason: cough Last Admin: 03/27/19 16:08 Dose: 100 mg Digoxin (Lanoxin Tab*) 0.125 mg PO Q48H [facility] Last Admin: 03/30/19 17:00 Dose: 0.125 mg Enalapril Maleate (Vasotec Tab*) 2.5 mg PO DAILY [facility] Last Admin: 03/30/19 09:46 Dose: 2.5 mg Famotidine (Pepcid Tab*) 10 mg PO BID [facility] Last Admin: 03/30/19 09:46 Dose: 10 mg Folic Acid (Folvite Tab*) 1 mg PO DAILY [facility] Last Admin: 03/30/19 09:45 Dose: 1 mg Heparin Sodium (Porcine) (Heparin Flush Picc/Ml/Cvc(*)) 1 - 3 ml FLUSH 0600, 1800 [facility]; Protocol Last Admin: 03/30/19 17:03 Dose: 3 ml Ceftriaxone Sodium 1 gm/ (Sodium Chloride) 50 mls @ 100 mls/hr IVPB Q24H [facility] Stop: 03/31/19 11:00 Last Admin: 03/30/19 09:59 Dose: 100 mls/hr Lactobacillus Rhamnosus (Lactobacillus Acidophilus*) 1 tab PO DAILY [facility] Last Admin: 03/30/19 09:45 Dose: 1 tab Lorazepam (Ativan Tab(*)) 0.5 mg PO Q8H PRN PRN Reason: ANXIETY Pramipexole Dihydrochloride (Mirapex Tab*) 1 mg PO TID [facility] Last Admin: 03/30/19 17:00 Dose: 1 mg Rivaroxaban (Xarelto(*)) 15 mg PO DAILY [facility] Last Admin: 03/30/19 09:46 Dose: 15 mg Torsemide (Demadex*) 100 mg PO DAILY [facility] Last Admin: 03/30/19 09:45 Dose: 100 mg Vital Signs - 8 hr 03/30/19 03/30/19 03/30/19 10:39 12:00 17:00 Temperature 97 F Pulse Rate 76 75 Respiratory 20 20 Rate Blood Pressure 82/41 (mmHg) O2 Sat by Pulse 99 Oximetry Oxygen Devices in Use Now: None Appearance: alert to verbal, resting in bed , no acute distress Eyes: No Scleral Icterus Ears/Nose/Mouth/Throat: Clear Oropharnyx, Mucous Membranes Moist Neck: NL Appearance and Movements; NL JVP, Trachea Midline Respiratory: Symmetrical Chest Expansion and Respiratory Effort, Clear to Auscultation, - - diminished in the bases bilat Cardiovascular: NL Sounds; No Murmurs; No JVD, - - mild edema to bilat lower legs Abdominal: NL Sounds; No Tenderness; No Distention Extremities: No Edema, No Clubbing, Cyanosis, - - dresssing intact to left lower leg. small of yellow drainage noted to dressing Skin: No Rash or Ulcers Neurological: Alert and Oriented x 3 Nutrition: Taking PO's Result Diagrams: 03/25/19 06:25 03/31/19 06:00 Additional Lab and Data: Above labs were pulled into the note, when the note was edited prior to signing. See below for labs from the day of consultation. Laboratory Tests 03/21/19 03/23/19 03/23/19 21:04 04:28 04:28 WBC 18.3 H Hgb 11.8 L Hct 35 Plt Count 144 L Sodium 132 L Potassium 4.4 Chloride 106 Carbon Dioxide 19 L BUN 53 H Creatinine 1.63 H Glucose 156 H C-Reactive Protein 43.27 H Total Protein 6.3 L Albumin 3.9 Microbiology and Other Data: Diagnostic Imagin. Exam Date: 03/23/19151 - VL ANK/BRACHIAL INDICES Right: Value (SBP) Index Brachial: 95 Posterior tibialis: Not acquired Dorsalis pedis: Noncompressible Left: Value (SBP) Index Brachial: 95 Posterior tibialis: Not acquired Dorsalis pedis: Not acquired Doppler waveforms (acquired at rest): In the interrogated lower extremity arteries, Doppler waveforms are monophasic measured at the bilateral dorsalis pedis arteries. Volume pulse recordings (acquired at rest): Volume pulse recordings, measured at the bilateral ankles, are symmetric. IMPRESSION: 1. Noncompressibility of the right dorsalis pedis artery indicates calcified atherosclerosis preventing compression of the artery and therefore preventing acquisition of unreliable SUSHILA. 2. Arterial waveforms are monophasic at the bilateral dorsalis pedis artery indicating some degree of proximal arterial insufficiency. 3. Due to the pain the patient experienced, no further ABIs could be attempted at the right posterior tibial artery or the left pedal arteries. If there exists strong clinical suspicion for arterial insufficiency exacerbating the left lower extremity ulcers, clinical evaluation with a vascular specialist may be appropriate. 2. Exam Date: 03/22/19154 - CT EXTREMITY LOWER LEFT WO IMPRESSION: Edematous and or inflammatory changes involving the left lower leg. Assess/Plan/Problems-Billing Ms Atkins is an 88 yo F with h/o severe systolic CHF, PAF s/p pacer presents with septic shock secondary to cellulitis with her hospital course being complicated by acute on chronic systolic CHF exacerbation in the setting of marked hypotension. - Patient Problems (1) Septic shock Current Visit: Yes Status: Acute Code(s): A41.9 - SEPSIS, UNSPECIFIED ORGANISM; R65.21 - SEVERE SEPSIS WITH SEPTIC SHOCK SNOMED Code(s): 57945127 Comment: Septic shock is resolved. - noted tohave periods hypotension - new cardiac medications likely contributing as well as poor cardiac function (2) Acute renal failure Current Visit: Yes Status: Acute Comment: Baseline is unclear but likely not normal given all of her comorbidities. Creatinine stable around 1.5. - will repeat BMP in the AM (3) CHF (congestive heart failure) Current Visit: Yes Status: Acute Code(s): I50.9 - HEART FAILURE, UNSPECIFIED SNOMED Code(s): 72306440 Comment: Pt with acute on chronic systolic CHF exacerbation. Her low BP is making diuresis very difficult. A long discussion was had between the patient's daughter/son-in-law between cardiology and medicine explaining patient minimal improvement despite aggressive attempts at diuresis and managment of her severe systolic CHF. It was recommended that hospice be pursued. The patient's family is agreeable - palliative care consulted the patient needs a same day discharg/sign-on for hospice. She will also need hospital bed and possibly commode. (4) Cellulitis Current Visit: Yes Status: Acute Code(s): L03.90 - CELLULITIS, UNSPECIFIED SNOMED Code(s): 440368848 Comment: Pt with probable cellulitis of L LE. She has completed 7 days of Abx therapy. Stop ceftriaxone. (5) Paroxysmal A-fib Current Visit: Yes Status: Acute Code(s): I48.0 - PAROXYSMAL ATRIAL FIBRILLATION SNOMED Code(s): 310321597 Comment: HR is paced. Continue amiodarone and xarelto. digoxin every other day (6) DVT prophylaxis Current Visit: Yes Status: Acute Code(s): Z29.9 - ENCOUNTER FOR PROPHYLACTIC MEASURES, UNSPECIFIED SNOMED Code(s): 679447951 Comment: Xarelto (7) DNR (do not resuscitate) Current Visit: Yes Status: Acute Status and Disposition: inpatient- home with hospice with same day sign on
[2019-03-31 06:33] LABS: BUN/Creatinine Ratio 37.6 (8-20); Calcium 8.4 mg/dL (8.6-10.3); EGFR African American 34.2 (>60); EGFR Non-African American 28.3 (>60); Potassium 3.8 mmol/L (3.5-5.0)
[2019-03-31] MEDS: cefTRIAXone(*) 1 GM in NS 0.9% 50 ML* 50 ML IVPB SCH (08:22)
[2019-03-31] MEDS: Lactobacillus Acidophilus* 1 TAB PO SCH (08:23)
[2019-03-31] MEDS: Aspirin EC TAB* 81 MG TAB.EC PO SCH (08:23)
[2019-03-31] MEDS: Amiodarone TAB* 200 MG PO SCH (08:24)
[2019-03-31] MEDS: Rivaroxaban TAB(*) 15 MG PO SCH (08:24)
[2019-03-31] MEDS: Enalapril TAB* 5 MG PO SCH (08:24)
[2019-03-31] MEDS: Famotidine TAB* 20 MG PO SCH ×2 (08:24→20:35)
[2019-03-31] MEDS: Torsemide TAB* 20 MG PO SCH (08:25)
[2019-03-31] MEDS: Folic Acid TAB* 1 MG PO SCH (08:25)
[2019-03-31] MEDS: Atorvastatin* 40 MG TAB PO SCH (08:25)
[2019-03-31] MEDS: Pramipexole TAB* 0.5 MG PO SCH ×3 (08:25→20:35)
--- NOTE | 2019-03-31 15:31 | PN ---
Subjective Date of Service: 03/31/19 Interval History: patient sitting in the chair , no acute distress, reports that breathing is better. would like to go home. Denies chest pain or shortness of breath. Denies abd n/v/d. no fever or chills Patient is minimal bloody nose today per nursing Patient is currently waiting to go home with hospice same day sign on. Family History: Unchanged from Admission Social History: Unchanged from Admission Past Medical History: Unchanged from Admission Objective Active Medications: Acetaminophen (Tylenol Tab*) 650 mg PO Q6H PRN PRN Reason: PAIN - MILD Last Admin: 03/30/19 21:13 Dose: 650 mg Albuterol/Ipratropium (Duoneb (Albuterol 2.5 Mg/Ipratropium 0.5 Mg)) 1 neb INH [id number] AWAKE PRN PRN Reason: SOB/WHEEZING Last Admin: 03/28/19 12:50 Dose: 1 neb Amiodarone HCl (Cordarone Tab*) 100 mg PO DAILY [facility] Last Admin: 03/31/19 08:24 Dose: 100 mg Aspirin (Aspirin Ec Tab*) 81 mg PO DAILY [facility] Last Admin: 03/31/19 08:23 Dose: 81 mg Atorvastatin Calcium (Lipitor*) 40 mg PO DAILY [facility] Last Admin: 03/31/19 08:25 Dose: 40 mg Benzonatate (Tessalon Cap*) 100 mg PO TID PRN PRN Reason: cough Last Admin: 03/27/19 16:08 Dose: 100 mg Digoxin (Lanoxin Tab*) 0.125 mg PO Q48H [facility] Last Admin: 03/30/19 17:00 Dose: 0.125 mg Enalapril Maleate (Vasotec Tab*) 2.5 mg PO DAILY [facility] Last Admin: 03/31/19 08:24 Dose: 2.5 mg Famotidine (Pepcid Tab*) 10 mg PO BID [facility] Last Admin: 03/31/19 08:24 Dose: 10 mg Folic Acid (Folvite Tab*) 1 mg PO DAILY [facility] Last Admin: 03/31/19 08:25 Dose: 1 mg Heparin Sodium (Porcine) (Heparin Flush Picc/Ml/Cvc(*)) 1 - 3 ml FLUSH 0600, 1800 [facility]; Protocol Last Admin: 02/05/20 06:01 Dose: 3 ml Lactobacillus Rhamnosus (Lactobacillus Acidophilus*) 1 tab PO DAILY [facility] Last Admin: 03/31/19 08:23 Dose: 1 tab Lorazepam (Ativan Tab(*)) 0.5 mg PO Q8H PRN PRN Reason: ANXIETY Last Admin: 03/30/19 21:14 Dose: 0.5 mg Pramipexole Dihydrochloride (Mirapex Tab*) 1 mg PO TID [facility] Last Admin: 03/31/19 08:25 Dose: 1 mg Rivaroxaban (Xarelto(*)) 15 mg PO DAILY [facility] Last Admin: 03/31/19 08:24 Dose: 15 mg Torsemide (Demadex*) 100 mg PO DAILY [facility] Last Admin: 03/31/19 08:25 Dose: 100 mg Vital Signs - 8 hr 03/31/19 03/31/19 03/31/19 08:00 11:00 15:00 Temperature 97.1 F 97.7 F Pulse Rate 75 75 Respiratory 18 17 16 Rate Blood Pressure 87/40 92/50 (mmHg) O2 Sat by Pulse 100 97 Oximetry Oxygen Devices in Use Now: None Appearance: alert, no acute distress elderly female Eyes: No Scleral Icterus Ears/Nose/Mouth/Throat: Clear Oropharnyx, Mucous Membranes Moist Neck: NL Appearance and Movements; NL JVP, Trachea Midline Respiratory: Symmetrical Chest Expansion and Respiratory Effort, Clear to Auscultation Cardiovascular: NL Sounds; No Murmurs; No JVD, No Edema Abdominal: NL Sounds; No Tenderness; No Distention Extremities: No Edema, No Clubbing, Cyanosis Skin: - - dressing to left lower leg , small ulcer noted Neurological: Alert and Oriented x 3 Nutrition: Taking PO's Result Diagrams: 03/25/19 06:25 03/31/19 06:00 Additional Lab and Data: Above labs were pulled into the note, when the note was edited prior to signing. See below for labs from the day of consultation. Laboratory Tests 03/21/19 03/23/19 03/23/19 21:04 04:28 04:28 WBC 18.3 H Hgb 11.8 L Hct 35 Plt Count 144 L Sodium 132 L Potassium 4.4 Chloride 106 Carbon Dioxide 19 L BUN 53 H Creatinine 1.63 H Glucose 156 H C-Reactive Protein 43.27 H Total Protein 6.3 L Albumin 3.9 Microbiology and Other Data: Diagnostic Imagin. Exam Date: 03/23/19 0152 - VL ANK/BRACHIAL INDICES Right: Value (SBP) Index Brachial: 95 Posterior tibialis: Not acquired Dorsalis pedis: Noncompressible Left: Value (SBP) Index Brachial: 95 Posterior tibialis: Not acquired Dorsalis pedis: Not acquired Doppler waveforms (acquired at rest): In the interrogated lower extremity arteries, Doppler waveforms are monophasic measured at the bilateral dorsalis pedis arteries. Volume pulse recordings (acquired at rest): Volume pulse recordings, measured at the bilateral ankles, are symmetric. IMPRESSION: 1. Noncompressibility of the right dorsalis pedis artery indicates calcified atherosclerosis preventing compression of the artery and therefore preventing acquisition of unreliable SUSHILA. 2. Arterial waveforms are monophasic at the bilateral dorsalis pedis artery indicating some degree of proximal arterial insufficiency. 3. Due to the pain the patient experienced, no further ABIs could be attempted at the right posterior tibial artery or the left pedal arteries. If there exists strong clinical suspicion for arterial insufficiency exacerbating the left lower extremity ulcers, clinical evaluation with a vascular specialist may be appropriate. 2. Exam Date: 03/22/19154 - CT EXTREMITY LOWER LEFT WO IMPRESSION: Edematous and or inflammatory changes involving the left lower leg. Assess/Plan/Problems-Billing Ms Atkins is an 88 yo F with h/o severe systolic CHF, PAF s/p pacer presents with septic shock secondary to cellulitis with her hospital course being complicated by acute on chronic systolic CHF exacerbation in the setting of marked hypotension. - Patient Problems (1) Septic shock Current Visit: Yes Status: Acute Code(s): A41.9 - SEPSIS, UNSPECIFIED ORGANISM; R65.21 - SEVERE SEPSIS WITH SEPTIC SHOCK SNOMED Code(s): 57434947 Comment: Septic shock is resolved. - noted tohave periods hypotension - new cardiac medications likely contributing as well as poor cardiac function (2) Acute renal failure Current Visit: Yes Status: Acute Comment: Baseline is unclear but likely not normal given all of her comorbidities. Creatinine stable around 1.5. -[place] today remain stable at 1.7 (3) CHF (congestive heart failure) Current Visit: Yes Status: Acute Code(s): I50.9 - HEART FAILURE, UNSPECIFIED SNOMED Code(s): 62697486 Comment: Pt with acute on chronic systolic CHF exacerbation. Her low BP is making diuresis very difficult. A long discussion was had between the patient's daughter/son-in-law between cardiology and medicine explaining patient minimal improvement despite aggressive attempts at diuresis and managment of her severe systolic CHF. It was recommended that hospice be pursued. The patient's family is agreeable - palliative care consulted the patient needs a same day discharg/sign-on for hospice. She will also need hospital bed and possibly commode. - (4) Cellulitis Current Visit: Yes Status: Acute Code(s): L03.90 - CELLULITIS, UNSPECIFIED SNOMED Code(s): 545062935 Comment: Pt with probable cellulitis of L LE. She has completed 7 days of Abx therapy. Stop ceftriaxone. (5) Paroxysmal A-fib Current Visit: Yes Status: Acute Code(s): I48.0 - PAROXYSMAL ATRIAL FIBRILLATION SNOMED Code(s): 144782347 Comment: HR is paced. Continue amiodarone and xarelto. digoxin every other day (6) DVT prophylaxis Current Visit: Yes Status: Acute Code(s): Z29.9 - ENCOUNTER FOR PROPHYLACTIC MEASURES, UNSPECIFIED SNOMED Code(s): 169792275 Comment: Xarelto (7) DNR (do not resuscitate) Current Visit: Yes Status: Acute Status and Disposition: inpatient- home with hospice with same day sign on likely tomorrow
[2019-03-31] MEDS: Albuterol/Ipratropium NEB.SOL* Albuterol 2.5 MG/Ipratropium 0.5 MG 3 ML INH PRN (18:23)
[2019-03-31] MEDS: Acetaminophen TAB* 325 MG PO PRN (20:35)
[2019-03-31] MEDS: LORazepam TAB(*) 0.5 MG PO PRN (20:35)
[2019-04-01] MEDS: Folic Acid TAB* 1 MG PO SCH (08:39)
[2019-04-01] MEDS: Atorvastatin* 40 MG TAB PO SCH (08:39)
[2019-04-01] MEDS: Aspirin EC TAB* 81 MG TAB.EC PO SCH (08:39)
[2019-04-01] MEDS: Famotidine TAB* 20 MG PO SCH (08:39)
[2019-04-01] MEDS: Enalapril TAB* 5 MG PO SCH (08:41)
[2019-04-01] MEDS: Pramipexole TAB* 0.5 MG PO SCH (08:41)
[2019-04-01] MEDS: Amiodarone TAB* 200 MG PO SCH (08:42)
[2019-04-01] MEDS: Rivaroxaban TAB(*) 15 MG PO SCH (08:43)
[2019-04-01] MEDS: Lactobacillus Acidophilus* 1 TAB PO SCH (08:43)
[2019-04-01] MEDS: Torsemide TAB* 20 MG PO SCH (09:02)
[2019-04-01] MEDS ORDERED: Magnesium Hydroxide LIQ* 30 ML UDC PO PRN (09:17)
[2019-04-01] MEDS: LORazepam TAB(*) 0.5 MG PO PRN (09:18)
[2019-04-01 12:58] VITALS: BP 98/41
--- NOTE | 2019-04-02 00:02 | DS ---
CC: Dr. Rodney; Dr. Souleymane Patel * DISCHARGE SUMMARY: DATE OF ADMISSION: 03/22/19 DATE OF DISCHARGE: 04/01/19 PRIMARY CARE PROVIDER: Dr. R[facility], phone number [phone]. OUTPATIENT ITEM REPAIR MANAGER: Dr. Souleymane Patel. MY ATTENDING WHILE IN THE HOSPITAL: Dr. Nighat Arellano.* (DICTATED BY PRAMOD HUGGINS) PRIMARY DISCHARGE DIAGNOSES: 1. Lower extremity cellulitis. 2. Heart failure with reduced ejection fraction, EF 10% to 15%. 3. Septic shock, resolved. SECONDARY DISCHARGE DIAGNOSES: 1. Atrial fibrillation. 2. History of pacemaker and ICD implantation. 3. Mitral valve replacement. 4. Pulmonary hypertension. 5. Chronic kidney disease unknown baseline. 6. Restless leg syndrome. MEDICATIONS AT DISCHARGE: 1. Torsemide 100 mg p.o. daily. 2. Magnesium hydroxide 30 mL p.o. b.i.d. as needed. 3. Lorazepam 0.5 mg p.o. q.8 hours as needed. 4. Morphine 5 mg sublingual q.2 hours as needed for dyspnea or pain. 5. Tylenol 650 mg p.o. q.6 hours as needed. 6. DuoNeb one neb inhalation q.4 hours while awake as needed. 7. Mirapex 1 mg p.o. t.i.d. 8. Enalapril 2.5 mg p.o. daily. 9. Lipitor 5 mg p.o. daily. 10. Famotidine 20 mg p.o. b.i.d. 11. Aspirin 81 mg p.o. daily. 12. Amiodarone 100 mg p.o. daily. 13. Folic acid 1 mg p.o. daily. 14. Potassium chloride one tab p.o. daily. 15. Digoxin 0.125 mg p.o. q.4 to 8 hours. New medications at discharge: 1. DuoNeb. 2. Digoxin. 3. Lorazepam. 4. Magnesium hydroxide. 5. Torsemide. 6. Morphine. Medications discontinued at discharge 1. CoQ10 300 mg p.o. daily. 2. Spironolactone 25 mg p.o. daily. 3. Metoprolol succinate 25 mg p.o. daily. 4. Torsemide 40 mg p.o. daily. STUDIES DONE WHILE IN THE HOSPITAL: Lower extremity CT from 03/22/19 read as inflammatory changes involving the left lower leg. Chest x-ray from 03/22/19 read as the apex terminates in the right superior SVC, no pneumothorax, decreased aeration in the right mid lung zone, unchanged cardiac silhouette. Extremity arterial study shows non-compressibility of the right dorsalis pedis artery indicating calcified atherosclerosis, presenting fresh in the artery, therefore preventing excision reliable. SUSHILA, arterial waveforms are monophasic at the bilateral dorsalis pedis artery indicating some degree of proximal arterial insufficiency. Transthoracic echocardiogram on 03/25/19 read as left ventricular chamber size is severely dilated, wall thickness mildly increased, systolic function severely reduced, estimated ejection fraction 10% to 15% diffuse hypokinesis with regional variations, right ventricle chamber size is mildly dilated, systolic function is mildly reduced, left atrium is severely dilated, mitral valve is bioprosthetic, no evidence of stenosis, tricuspid valve with mild regurgitation, pulmonary artery systolic pressure is severely increased. Chest x-ray from 03/17/19 read as right mid to upper lung zone airspace opacification, no large pleural effusion, severe cardiomegaly with postoperative changes. HOSPITAL COURSE: This is a brief summary of the patient's presentation. For more details, please see the history and physical from Dr. Tommie Holguin on . In brief, the patient is an 88-year-old female with past medical history significant for the above, who scraped her leg around 03/02/19 which began to swell and increasing pain on 03/17/19 with oozing from her wound. At that time , the patient's amiodarone was discontinued and her torsemide was increased. The patient had numerous clinical signs of sepsis and the patient was referred to the hospitalist service. The patient initially had severe hypotension, soon after one dose of IV Lasix and required vasopressor agents. She was started on clindamycin and cefazolin. The patient was on Levophed initially. The patient had spironolactone, metoprolol, enalapril, and torsemide held. Her amiodarone and Xarelto were continued. The patient was switched to Zosyn. The patient was able to be weaned off of her Levophed on 03/24/19. The patient was noted to have severely decreased functional capacity. The patient had a transthoracic echocardiogram as above showing severely decreased ejection fraction. The patient's blood pressure was significantly low throughout her hospitalization even after she was weaned off of the Levophed. The patient was seen in consultation by Dr. Souleymane Patel of Cardiology, who started the patient on digoxin with initial IV loading dose. The patient was continued with IV diuresis. Given the advanced nature of the patient's disease, palliative care was consulted. A long discussion was undertaken between the patient's daughter and Dr. Rema Hester of Palliative Medicine, again the result being that the patient would be referred to hospice at discharge due to her end-stage heart failure. The patient continued to be significantly short of breath with severely decreased exercise capacity while in the hospital despite treatment as above. The patient received 7 total days of antibiotic therapy for her legs with ceftriaxone which finished on 03/31/19. The patient was stabilized again with severely decreased exercise capacity and was hospitalized from 03/29/19 to 04/01/19 awaiting availability of hospice sign on. The patient was stable and amenable for discharge to home under the care of her daughter and hospice on 08/13. The patient's ICD was unable to be turned off prior to her discharge and this was arranged with Cardiology to be done as an outpatient to avoid unnecessary shocks when nearing the end of life. PHYSICAL EXAMINATION ON THE DAY OF DISCHARGE: General: The patient is an 88- year- old female who appears stated age, sitting in the bed, in no acute distress. Vital Signs: Temperature 97.1, pulse rate 75, respiratory rate 16, oxygen saturation 98% on room air, blood pressure 98/41. HEENT: Head normocephalic, atraumatic. Sclerae anicteric. No conjunctival injection. Nasal mucosa moist. Oral mucosa moist. No pharyngeal erythema, discharge, or exudate. Neck: Supple, nontender. No lymphadenopathy. No carotid bruit auscultated. JVP recorded in the jaw. Cardiac: Irregularly irregular rhythm. No clicks, murmurs, gallops or rubs. Pulses trace in bilateral lower extremities , decreased perfusion, 2+ pitting edema in bilateral lower extremities. Respiratory: Clear to auscultation bilaterally. Slight rales heard in the bilateral lower lobes. Clear to auscultation otherwise. There are no adventitious lung sounds. Good air exchange. Abdomen: Soft, nontender, nondistended. Bowel sounds present and normoactive in all 4 quadrants. No hepatosplenomegaly. No abdominal bruits auscultated. No hepatojugular reflux. Genitourinary: No suprapubic tenderness or CVA tenderness. Skin: Open draining areas in the left lower extremity with mild erythema improved from pictures of admission without erythema to suggest ongoing infection. Nonblanchable areas in bilateral elbows consistent with pressure injury. Neuro : Cranial nerves II through XII intact. Alert and oriented to self and place. DISCHARGE PLAN BY PROBLEMS: 1. Severe heart failure with reduced ejection fraction. The patient has EF of 10% to 15% and severely symptomatic from this. The patient is on maximal therapy, has a significantly low blood pressure. Given the patient's poor functional status and prognosis despite optimal treatment, the patient will be referred to hospice. The patient will be signed on 04/01/19. The patient will have morphine for dyspnea. The patient will be continued on her diuretics and JONN inhibitor as above. The patient's spironolactone and beta-annie were held while in the hospital and were not resumed. The patient will be continued on amiodarone at this time, mainly for suppression of ventricular arrhythmias until she is able to have her ICD deactivated as the patient would like to avoid unnecessary shocks. Continue the patient's low-dose digoxin for inotropic support, but this does not appear to be markedly effective. 2. Atrial fibrillation. Continue the patient's amiodarone, digoxin and Xarelto. In the future, Xarelto may be discontinued as it likely has very low benefits at this time. 3. Comfort care. Continue the patient's lorazepam and morphine for comfort nearing the end of life. 4. Restless leg syndrome. Continue the patient's pramipexole and Ativan for symptomatic control. DISPOSITION: Home. CONDITION: Stable. TIME SPENT: Approximately 60 minutes was spent on this discharge of this patient, 30 of which was spent [id number] with the patient obtaining history and physical and discussing the treatment plan. PRAMOD HUGGINS [id number]/[facility] #: [id number] [place]
== END 2019-04-01 12:55 | disposition home or self-care (01) | DRG 871 ==
LOC: ED 19:20 → ICU 03-22 01:49 → MEDTELE 03-24 11:30 → MED 03-30 21:50
PROVIDERS: ADMIT Internal Medicine; ATTEND Internal Medicine
PROC: 3E033XZ Introduction of Vasopressor into Peripheral Vein, Percutaneous Approach (ICD-10-PCS; 2019-03-23)
PROC: 02HV33Z Insertion of Infusion Device into Superior Vena Cava, Percutaneous Approach (ICD-10-PCS; principal; 2019-03-27)
DX: A41.9 Sepsis, unspecified organism (principal); R65.21 Severe sepsis with septic shock; I50.23 Acute on chronic systolic (congestive) heart failure; L03.116 Cellulitis of left lower limb; N17.8 Other acute kidney failure; L97.928 Non-pressure chronic ulcer of unspecified part of left lower leg with other specified severity; E87.2 Acidosis; Z66 Do not resuscitate; Z51.5 Encounter for palliative care; F03.90 Unspecified dementia, unspecified severity, without behavioral disturbance, psychotic disturbance, mood disturbance, and anxiety; N18.9 Chronic kidney disease, unspecified; G25.81 Restless legs syndrome; I48.0 Paroxysmal atrial fibrillation; I70.202 Unspecified atherosclerosis of native arteries of extremities, left leg; M15.9 Polyosteoarthritis, unspecified; E87.5 Hyperkalemia; B96.20 Unspecified Escherichia coli [E. coli] as the cause of diseases classified elsewhere; B96.89 Other specified bacterial agents as the cause of diseases classified elsewhere; I25.5 Ischemic cardiomyopathy; I27.20 Pulmonary hypertension, unspecified; E07.89 Other specified disorders of thyroid; Z95.810 Presence of automatic (implantable) cardiac defibrillator; Z96.643 Presence of artificial hip joint, bilateral; Z95.2 Presence of prosthetic heart valve; Z95.1 Presence of aortocoronary bypass graft; Z79.82 Long term (current) use of aspirin
CPT/HCPCS: 36415; 71045; 80048; 80053; 81003; 81015; 82570; 83605; 83735; 83880; 84439; 84443; 84479; 84540; 85025; 85610; 85730; 86140; 87040; 87070; 87077; 87086; 87186; 87205; 87640; 87641; 93005; 93306; 93922; 94640; 96365; 96375; 99285; A9270-GY; C1751; C8929; J0690; J0696; J1160; J1940; J2270; J2543